=== PATIENT | male | born 1990 | race Hispanic/Latino ===

== ENCOUNTER 2016-05-16 11:21 | Inpatient (IN) | payer OTHER ==
[~2016-05-16] VITALS: Ht 160 cm; Wt 61.3 kg
[~2016-05-16 11:21] MED LIST: IBUPROFEN600 M1 PO; MOTRIN800 MG PO; PROAIR HFA0.09 MG/Ac INH; ZITHROMAX Z PA250 MG PO; ZOFRAN4 M1 PO
[2016-05-16 13:12] LABS: ABSOLUTE BASOPHIL COUNT 0 /CUMM (0.0-0.2); ABSOLUTE EOSINOPHIL COUNT 0 /CUMM (0.0-0.7); ABSOLUTE GRANULOCYTE CT 5.9 /CUMM (1.4-6.5); ABSOLUTE LYMPH COUNT 1.8 /CUMM (1.2-3.4); ABSOLUTE MONOCYTE COUNT 0.5 /CUMM (0.10-0.60); BASOPHIL % 0.4 % (0.0-2.0); EOSINOPHIL % 0.4 % (0-5); GRANULOCYTE % 71.7 % (42.2-75.2); HEMATOCRIT 40.8 % (42-52); MEAN CORPUSCULAR HGB CONC 34.7 G/DL (33.0-37.0); MEAN CORPUSCULAR VOLUME 89.3 FL (80.0-94.0); MEAN PLATELET VOLUME 7.1 FL (7.4-10.4); PLATELET COUNT 240 /CUMM (130-400); RBC DISTRIBUTION WIDTH 12.7 % (11.5-14.5); RED BLOOD CELL CT 4.57 /CUMM (4.70-6.10); WHITE BLOOD CELL COUNT 8.3 /CUMM (4.8-10.8)
--- NOTE | 2016-05-16 14:07 | RADIOLOGY REPORT ---
EXAMINATION: XR CHEST CLINICAL INFORMATION: Chest pain and shortness of breath. Crack cocaine inhalation. COMPARISON: 07/30/2014. TECHNIQUE: 2 views of the chest were obtained. FINDINGS: Cardiac and mediastinal silhouettes are normal in appearance. Mild right apical pleural scarring is stable. The lungs are slightly hyperinflated but clear. No evidence of consolidation or pneumothorax or pleural effusion. IMPRESSION: No acute cardiopulmonary process is demonstrated.
--- NOTE | 2016-05-16 14:17 | ED GENERAL ADULT ---
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 Vital Signs & Intake/Output Vital Signs & Intake/Output Vital Signs Date Time Temp Pulse Resp B/P Pulse O2 O2 Flow FiO2 Ox Delivery Rate 05/17 0645 96.7 63 18 115/60 99 Room Air 05/16 2321 72 18 122/69 97 Room Air 05/16 1802 98.0 75 16 116/59 98 Room Air 05/16 1203 Room Air 05/16 1136 99.4 109 20 152/87 97 Room Air ED Intake and Output 05/17 0000 05/16 1200 Intake Total 1000 Output Total Balance 1000 Intake, IV 1000 Patient 140 lb Weight Allergies Coded Allergies: Penicillins (Intermediate, HIVES 05/25/15) Reconcile Medications No Known Home Medications Triage Note: STATES EVERY TIME HE USES CRACK HE FEELS LIKE HE IS GOING CRAZY, PARANOIA, FEELS LIKE PEOPLE ARE FOLLOWING HIM ESPECIALLY AT NIGHT. STATES HE DOESN'T WANT TO LIVE BECAUSE OF HIS ADDICTION TO DRUGS. HAS PLAN TO JUMP OFF BRIDGE. COMMIT TO SAFETY WHILE IN ED Triage Nurses Notes Reviewed? yes HPI: 25 yo M PMH polysubstance abuse presenting with SI, for detox evaluation. Patient has been using crack cocaine for the past several months, drinking daily (10-18 beers), progressive dysthmia and discontent with "all my drug use." Worsening SI for the past 2-3 days with plan to jump off of building. In the past 24 rs has used 5-6 $20 bags of crack cocaine, smoked, drank 10+ beers, last drink this AM around 6:00. (+) Auditory Hallucinations, voices telling patient to kill himself and not to trust his friends. ROS (+) for intermittent chest pain, palpitations, and SOB with crack cocaine use. Denies toxic ingestions or self-injury. (ALLY EUGENE,KARI) Past History Travel History Traveled to [place] past 21 day No Medical History Any Pertinent Medical History? 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 Yes (ALLY EUGENE,KARI) Review of Systems Review of Systems Constitutional: Reports: diaphoresis. EENTM: Reports: no symptoms. Respiratory: Reports: short of breath. Cardiovascular: Reports: chest pain. GI: Reports: nausea. Denies: abdominal pain, diarrhea, vomiting. Genitourinary: Reports: no symptoms. Musculoskeletal: Reports: no symptoms. Skin: Reports: no symptoms. Neurological/Psychological: Reports: anxiety, depressed, other (SI). Hematologic/Endocrine: Reports: no symptoms. Immunologic/Allergic: Reports: no symptoms. All Other Systems: Reviewed and Negative (ALLY EUGENE,KARI) Physical Exam Physical Exam General Appearance: well developed/nourished, no apparent distress, alert, awake , anxious Head: atraumatic, normal appearance Eyes: Bilateral: normal appearance. Ears, Nose, Throat: normal ENT inspection, No Tongue fasciculations Neck: normal inspection, supple, full range of motion Respiratory: normal breath sounds, no respiratory distress, lungs clear Cardiovascular: normal peripheral pulses, tachycardia Gastrointestinal: normal bowel sounds, soft, non-tender Back: normal inspection Extremities: No tremors Neurologic/Psych: no motor/sensory deficits, awake, alert, No tremors or tongue fasiculations Skin: intact Core Measures ACS in differential dx? Yes CVA/TIA Diagnosis: No Severe Sepsis Present: No Septic Shock Present: No (KARI CANALES MD) Progress Differential Diagnoses I considered the following diagnoses in my evaluation of the patient: [EtOH abuse, Cocaine abuse, EtOH withdrawal, cocaine chest pain, Crack Cociane lung, PTX, PNA, SI] Initial ED EKG: normal sinus rhythm, JOSE CARLOS V2-V3 (KARI CANALES MD) Plan of Care: Orders Procedure Date/time Status Regular Diet 05/16 D Active Add-on Test (ER Only) 05/16 1357 Active URINE DRUG SCREEN FOR ER ONLY 05/16 1251 Complete URINALYSIS 05/16 1251 Complete ETHANOL 05/16 1251 Complete COMPREHENSIVE METABOLIC PANEL 05/16 1251 Complete CBC WITHOUT DIFFERENTIAL 05/16 1251 Complete Precautions 05/16 1250 Active CIWA 05/16 1250 Active ED CRISIS PSYCH CONSULT 05/16 1250 Active EKG 05/16 1215 Active Current Medications Sig/Gerry Start time Last Medication Dose Stop Time Status Admin Diazepam 5 MG ONCE ONE 05/16 1430 CAN (Valium) 05/16 1431 Laboratory Tests 05/16/16 1311: Serum Alcohol Cancelled 05/16/16 1258: Urine Opiates Screen < 100.00, Methadone Screen < 40, Barbiturate Screen < 60, Ur Phencyclidine Scrn < 6.00, Amphetamines Screen 154, U Benzodiazepines Scrn < 85, Urine Cocaine Screen > 1000 H, Urine Cannabis Screen < 5.00, Urine Color YEL, Urine Clarity CLEAR, Urine pH 6.0, Ur Specific [place] 1.010, Urine Protein NEG, Urine Ketones NEG, Urine Nitrite NEG, Urine Bilirubin NEG, Urine Urobilinogen 0.2, Ur Leukocyte Esterase NEG, Ur Microscopic EXAM NOT REQUIRED, Urine Hemoglobin NEG, Urine Glucose NEG 05/16/16 1251: Anion Gap 17 H, Estimated GFR > 60, BUN/Creatinine Ratio 10.0, Glucose 84, Calcium 9.4, Total Bilirubin 0.8, AST 44, ALT 43, Alkaline Phosphatase 98, Total Protein 7.9, Albumin 4.7, Globulin 3.2, Albumin/Globulin Ratio 1.5, CBC w Diff NO MAN DIFF REQ, RBC 4.57 L, MCV 89.3, MCH 31.0, RDW 12.7, MPV 7.1 L, Gran % 71.7, Lymphocytes % 21.4, Monocytes % 6.1, Eosinophils % 0.4, Basophils % 0.4, Absolute Granulocytes 5.9, Absolute Lymphocytes 1.8, Absolute Monocytes 0.5, Absolute Eosinophils 0, Absolute Basophils 0, PUBS MCHC 34.7, Serum Alcohol 44.0 Physician MDM: 25 yo M PMH polysubstance abuse presenting with EtOH abuse, cocaine abuse, SI. Tachycardic in 100s, remainder of exam as above. DDx: EtOH abuse, Cocaine abuse, EtOH withdrawal, cocaine chest pain, Crack Cociane lung, PTX, PNA, SI. 1L NS for tachycardia, will hold BZD for now given lack of tremors and significant anxiety. ECG sinus rhythm, JOSE CARLOS in V2-V3, non-ischemic. CXR without focal consolidation or airspace disease. BMP with mild AG, IVF infusing. Medically cleared for ED crisis evaluation. Evaluated by crisis, plan to hold for sobriety overnight, re-evaluate tomorrow morning. D/W Dr. Foote. (KARI CANALES MD) 05/16/2016 7:50:43 PM Patient signed out to me by Dr. Lema, pending crisis evaluation tomorrow morning. (CHEYANNE GOSS MD) Differential Diagnoses I considered the following diagnoses in my evaluation of the patient: Hand-Off Endorsed To: ZIA CLINTON DO Endorsed Time: 0700 Pending: consult (CRISIS) (CHEYANNE GOSS MD) Departure Departure Disposition: STILL A PATIENT Condition: Stable Clinical Impression Primary Impression: Suicidal ideation Secondary Impressions: Alcohol abuse, Cocaine abuse Referrals: PATIENT HAS NO PRIMARY CARE DR (PCP/Family) Departure Forms: Customer Survey General Discharge Information (KARI CANALES MD) Departure Prescriptions: Current Visit Scripts No Known Home Medications Resident Co-Sign Statement Statement: ED Attending supervision documentation- [x] I saw and evaluated the patient. I have also reviewed all the pertinent lab results and diagnostic results. I agree with the findings and the plan of care as documented in the Resident's documentation. [] I have reviewed the ED Record and agree with the Resident's documentation. [] Additions or exceptions (if any) to the Resident's note and plan are summarized below: [] (ADONAY EUGENE,ZIA Hansen) Departure Comments 05/17/16 7:24 AM Was signed out to me by Dr. Goss. He is pending disposition by crisis. (ZIA CLINTON DO) Critical Care Note Critical Care Note Critical Care Time: non-applicable (KARI CANALES MD)
--- NOTE | 2016-05-16 15:17 | ED PSY CRISIS COLLATERAL NOTE ---
Collateral Note Collateral Note Family/Inform/Mita Contacts: Crisis spoke to pt's friend Corrine Cedeno ([phone]). Ms. Cedeno reports she has not spoken (via text) to pt in over a week. She reports everything was okay a week ago when they were texting.
--- NOTE | 2016-05-16 16:51 | ED PSYCH CRISIS CONSULTATION ---
See Addendum Crisis Consult Basic Assessment Date of Consult: 05/16/16 Responsible Person/Accompanied By: self Insurance Authorization: Insurance #1: Insurance name: SELF-PAY Phone number: Policy number: Group number: Authorization number: ED Provider: Patient's ED Provider: KARI CANALES MD Primary Care Physician: Patient's PCP: PATIENT HAS NO PRIMARY CARE DR PCP's Phone Number: Current Psychiatrist: None Chief Complaint: Psychiatric Related Complaint Patient's Quote: "I went into the street today and people wear following me" Present Illness: Pt is a 25 year old Burkinan male who moved to the [facility] 3 years ago. Pt's primary langauge is Belgian. 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 Pt self presents in the ED today high on crack cocaine, paranoid that people are following him and suicidal ideation ( thinking of jumping off a bridge). Pt has a long history of drug use. Pt started using cocaine at the age of 21 and switched to crack-cocaine several months ago when he reports cocaine was unavailable. Pt also reports he drinks 10 -18 beers daily. Pt reports he used 5-6 $20 bags of crack cocaine within the last 24 hours. Pt reports he also smokes cigarettes and denies other drug use. Pt reports auditory and tactile hallucinations. Pt reports he heard a voice telling him to not trust his friends. Pt reports while in the ED he felt something crawling on his face. Pt denies past mental health/ substance abuse treatment. 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 Pt reports he only thinks about suicide when hes using substances. Pt wants help with substance use. Crisis consulted with Dr. Gutierrez. Pt will be held over and re-evaluated in the morning. Pt is in agreement with the re-evaluation in the morning. Patient's Address: [address] [place] [address] Other Phone Number: Who Do You Live With? Brother Family/Informants Interviewed: Friend contacted- but hasn't spoken to pt Another friend contacted, no call back Allergies - Coded Allergies: Penicillins (Intermediate, HIVES 05/25/15) Current Medications - No Known Home Medications Laboratory Results: Laboratory Tests 05/16/16 1311: Serum Alcohol Cancelled 05/16/16 1258: Urine Opiates Screen < 100.00, Methadone Screen < 40, Barbiturate Screen < 60, Ur Phencyclidine Scrn < 6.00, Amphetamines Screen 154, U Benzodiazepines Scrn < 85, Urine Cocaine Screen > 1000 H, Urine Cannabis Screen < 5.00, Urine Color YEL, Urine Clarity CLEAR, Urine pH 6.0, Ur Specific [place] 1.010, Urine Protein NEG, Urine Ketones NEG, Urine Nitrite NEG, Urine Bilirubin NEG, Urine Urobilinogen 0.2, Ur Leukocyte Esterase NEG, Ur Microscopic EXAM NOT REQUIRED, Urine Hemoglobin NEG, Urine Glucose NEG 05/16/16 1251: Anion Gap 17 H, Estimated GFR > 60, BUN/Creatinine Ratio 10.0, Glucose 84, Calcium 9.4, Total Bilirubin 0.8, AST 44, ALT 43, Alkaline Phosphatase 98, Total Protein 7.9, Albumin 4.7, Globulin 3.2, Albumin/Globulin Ratio 1.5, CBC w Diff NO MAN DIFF REQ, RBC 4.57 L, MCV 89.3, MCH 31.0, RDW 12.7, MPV 7.1 L, Gran % 71.7, Lymphocytes % 21.4, Monocytes % 6.1, Eosinophils % 0.4, Basophils % 0.4, Absolute Granulocytes 5.9, Absolute Lymphocytes 1.8, Absolute Monocytes 0.5, Absolute Eosinophils 0, Absolute Basophils 0, PUBS MCHC 34.7, Serum Alcohol 44.0 Past History Past Medical History Neurological: NONE EENT: NONE Cardiovascular: NONE Respiratory: NONE Gastrointestinal: NONE Hepatic: NONE Renal: NONE Musculoskeletal: NONE Psychiatric: substance abuse Endocrine: NONE Blood Disorders: NONE Cancer(s): NONE 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 Past Surgical History Surgical History: non-contributory Psychosocial History Strengths/Capabilities: patient is seeking help to stop using drugs Physical Limitations (Interventions): none Psychiatric Treatment History Psych Treatment Psychiatric Treatment No Inpatient Treatment No Outpatient Treatment No Diagnosis by History: none Substance Use/Abuse History Drug Use/Abuse 1 Substances Used/Abused Yes Substance Used/Abused Alcohol First Use 21 Last Used yesterday 2/18/17 How much used/taken 10-18 beers How often 10-18 beers daily For how long since 21 Route of use oral Drug Use/Abuse 2 Substances Used/Abused Yes Substance Used/Abused Cocaine First Use 21 Last Used 3 months ago How much used/taken varied How often daily For how long several years Route of use inhaled Drug Use/Abuse 3 Substances Used/Abused Yes Substance Used/Abused Crack Cocaine First Use 3 months ago Last Used today How much used/taken 5-6 $20 bags within last 24 hours How often varies For how long for the last 3 months Route of use inhale Drug Use/Abuse 4 Substances Used/Abused Yes Substance Used/Abused Nicotine First Use unknown Last Used today How much used/taken several cigarrettes How often varies For how long years Route of use inhaled Substance Abuse Treatment Substance Abuse Treatment Past Substance Abuse [place] No Inpatient Treatment No Outpatient Treatment No Current Mental Status Mental Status Orientation: Person, Place, Situation Affect: Depressed, Flat, Hopeless, Sad Speech: Normal Neuro-vegetative: Anhedonia, Energy Decreased, Helpless Appearance Appearance- Dress/Hygiene: pt presents in [facility] issued paper scrubs. Pt appears well groomed. Pt has saline IV in hand as nursing reports he is mildly dyhdrated. Behaviors Thought Process: WNL Thought Content: Auditory Hallucinations, Paranoid, Tactile Hallucinations Memory: WNL Insight: Fair SI/HI Risk Assessment Past Suicidal Ideation/Attempts Yes Current Suicidal Ideation/Att Yes Past Homicidal Ideation/Att: No Current Homicidal Ideation/Attempts No Degree of Intent: Plan (jump off bridge) Danger To: Self Gravely Disabled: Poor Impulse Control Risk Factors: high anxiety/distress, substance abuse, poor impulse control, male , limited support Lethality Ratin PTSD Checklist PTSD Done? patient declined ED Management Sitter: Yes Restraints: No DSM5/PS Stressors/Medical Prob Diagnosis' (DSM 5, Stressors, Medical): F14.20 Cocaine Use Disorder, Severe (crack-cocaine) F10.20 Alcohol Use Disorder, Severe F17.2 Tobacco Use Disorder, Moderate Z59.7 Insufficient Social Insurance or Welfare Support Current GAF: 30 Departure Disposition Psych Medical Clearance Date: 05/16/16 Medically Cleared at: 1500 Time Started: 1545 Time Ended: 1605 Psychiatrist Consulted: Dr. Gutierrez Date Disposition Established: 05/16/16 Time Disposition Established: 162 Plan for Disposition - Modality: hold over and re-eval Rationale for Disposition: Pt presents with SI, AH and TH (tactile). Pt is positive for cocaine. pt used 5- 6 $20 bags of crack cocaine today. Pt reports psychosis and SI when he is high and denies feelings suicidal or depressed when sober. pt should be held over and re-evaluated when he is substance free. Referrals PATIENT HAS NO PRIMARY CARE DR (PCP/Family)
[2016-05-17] VITALS (9 sets, daily range): BP systolic 113–132; BP diastolic 60–88
--- NOTE | 2016-05-17 10:50 | IP CRISIS DIAG ASSESS PSYCH ---
See Addendum Diagnostic Assessment Basic Assessment Insurance Authorization: Insurance #1: Insurance name: SELF-PAY Phone number: Policy number: Group number: Authorization number: Primary Care Physician: Patient's PCP: PATIENT HAS NO PRIMARY CARE DR PCP's Phone Number: Patient's Quote: "I went into the street today and people wear following me" Present Illness: Pt is a 25 year old [place] male who moved to the [facility] 3 years ago. Pt's primary langauge is Egyptian. 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 Pt self presents in the ED today high on crack cocaine, paranoid that people are following him and suicidal ideation ( thinking of jumping off a bridge). Pt has a long history of drug use. Pt started using cocaine at the age of 21 and switched to crack-cocaine several months ago when he reports cocaine was unavailable. Pt also reports he drinks 10 -18 beers daily. Pt reports he used 5-6 $20 bags of crack cocaine within the last 24 hours. Pt reports he also smokes cigarettes and denies other drug use. Pt reports auditory and tactile hallucinations. Pt reports he heard a voice telling him to not trust his friends. Pt reports while in the ED he felt something crawling on his face. Pt denies past mental health/ substance abuse treatment. 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 Pt reports he only thinks about suicide when hes using substances. Pt wants help with substance use. Crisis consulted with Dr. Gutierrez. Pt will be held over and re-evaluated in the morning. Pt is in agreement with the re-evaluation in the morning. 05/17/16: Pt was re-evaluted this morning by crisis. Pt endorses suicidal ideation with a plan to jump off a bridge. Pt reports he does not feel safe going home as he will just use which will increase his suicidal ideation. Pt reports he is not working and has limited supports. Crisis reviewed with Dr. Loyola, pt should be admitted to [facility]. Patient's Address: [address] [place] [address] Other Phone Number: Who Do You Live With? Brother Feel Safe Where You Live? Yes Feel Safe in Your Relationship No (n/a not in a relationship) Marital Status: single Do You Have Children? No Primary Language? Egyptian Language(s) Spoken At Home: Egyptian Family/Informants Interviewed: Friend contacted- but hasn't spoken to pt Another friend contacted, no call back Allergies - Coded Allergies: Penicillins (Intermediate, HIVES 05/25/15) Current Medications - No Known Home Medications Consequences of Psych Med Use: n/a Lab Results: Laboratory Tests 05/16/16 1311: Serum Alcohol Cancelled 05/16/16 1258: Urine Opiates Screen < 100.00, Methadone Screen < 40, Barbiturate Screen < 60, Ur Phencyclidine Scrn < 6.00, Amphetamines Screen 154, U Benzodiazepines Scrn < 85, Urine Cocaine Screen > 1000 H, Urine Cannabis Screen < 5.00, Urine Color YEL, Urine Clarity CLEAR, Urine pH 6.0, Ur Specific [place] 1.010, Urine Protein NEG, Urine Ketones NEG, Urine Nitrite NEG, Urine Bilirubin NEG, Urine Urobilinogen 0.2, Ur Leukocyte Esterase NEG, Ur Microscopic EXAM NOT REQUIRED, Urine Hemoglobin NEG, Urine Glucose NEG 05/16/16 1251: Anion Gap 17 H, Estimated GFR > 60, BUN/Creatinine Ratio 10.0, Glucose 84, Calcium 9.4, Total Bilirubin 0.8, AST 44, ALT 43, Alkaline Phosphatase 98, Total Protein 7.9, Albumin 4.7, Globulin 3.2, Albumin/Globulin Ratio 1.5, CBC w Diff NO MAN DIFF REQ, RBC 4.57 L, MCV 89.3, MCH 31.0, RDW 12.7, MPV 7.1 L, Gran % 71.7, Lymphocytes % 21.4, Monocytes % 6.1, Eosinophils % 0.4, Basophils % 0.4, Absolute Granulocytes 5.9, Absolute Lymphocytes 1.8, Absolute Monocytes 0.5, Absolute Eosinophils 0, Absolute Basophils 0, PUBS MCHC 34.7, Serum Alcohol 44.0 Toxicology Screen Completed? Yes Results: positive (cocaine) Symptoms of Use: For the last 3 weeks, pt reports he has been drinking 10-18 beers daily as well as smoking crack-cocaine "until he runs out of money". Past History Past Medical History Medical History: None/Denies Past Surgical History Surgical History none Abuse/Trauma History Trauma History/Current Trauma: Denies Legal History Current Legal Status: none Have you ever been arrested? 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 Psychosocial History Strengths/Capabilities: patient is seeking help to stop using drugs Physical Limitations (Interventions): none Psychiatric Treatment History Psych Treatment Psychiatric Treatment No Inpatient Treatment No Outpatient Treatment No Diagnosis by History: none Risk Factors: high anxiety/distress, substance abuse, poor impulse control, male , limited support Substance Use/Abuse History Drug Use/Abuse minimum 12mo Hx Substances Used/Abused Yes Substance Used/Abused Nicotine First Use unknown Last Used today How much used/taken several cigarrettes How often varies For how long years Route of use inhaled Substance Abuse Treatment Substance Abuse Treatment Past Substance Abuse [place] No Inpatient Treatment No Outpatient Treatment No Sexual History Sexually Active No # of partners 0 Sexual Orientation Heterosexual Sexual Concerns: n/a Education History Highest Level of Education: high school/GED Preferred Learning Style: visual, experiential Current Mental Status Mental Status Orientation: Person, Place, Situation Affect: Depressed, Flat, Hopeless, Sad Speech: Normal Neuro-vegetative: Anhedonia, Energy Decreased, Helpless Appearance Appearance- Dress/Hygiene: pt presents in [facility] issued paper scrubs. Pt appears well groomed. Behaviors Thought Process: WNL Thought Content: Auditory Hallucinations, Paranoid, Tactile Hallucinations Memory: WNL Insight: Fair SI/HI Risk Assessment - Minimum 6mo History- Past Suicidal Ideation/Attempts Yes Current Suicidal Ideation/Att Yes Past Homicidal Ideation/Att: No Current Homicidal Ideation/Attempts No Degree of Intent: Plan (jump off bridge) Danger To: Self Gravely Disabled: Poor Impulse Control Risk Factors: high anxiety/distress, substance abuse, poor impulse control, male , limited support Lethality Ratin Needs/Init TX Plan/Goals: 1. Improve mood, eliminate suicidal thinking 2. Increase identification and use of positive coping skills 3. Increase community support system 4. Decrease substance use AUDIT-C Questionnaire: AUDIT-C Questionnaire: Response Value ETOH use in the past year 4 or more per week 4 # drinks typical/day 10 or more 4 6 or > drinks per occasion Daily/Almost Daily 4 Total 12 DSM5/PS Stressors/Medical Prob Diagnosis' (DSM 5, Stressors, Medical): F14.20 Cocaine Use Disorder, Severe (crack-cocaine) F10.20 Alcohol Use Disorder, Severe F17.2 Tobacco Use Disorder, Moderate Z59.7 Insufficient Social Insurance or Welfare Support Current GAF: 30
--- NOTE | 2016-05-17 11:24 | SOCIAL WORKER SOCIAL HX PSYCH ---
Social History Basic Assessment Insurance Authorization: Insurance #1: Insurance name: SELF-PAY Phone number: Policy number: Group number: Authorization number: Curr Source of Income/Entitlements: no current source of income. 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 Pt's primary language is Mongolian. [facility], cert pharmacy tech Sandy, translated as the [employer] system was unavailable. Pt self presents in the ED yesterday (05/16/16 ) high on crack cocaine, paranoid that people are following him and suicidal ideation (thinking of jumping off a bridge). Pt has a long history of drug use. Pt started using cocaine at the age of 21 and switched to crack-cocaine several months ago when he reports cocaine was unavailable. Pt also reports he drinks 10 -18 beers daily. Pt reports he used 5-6 $20 bags of crack cocaine within the last 24 hours. Pt reports he also smokes cigarettes and denies other drug use. Pt reports auditory and tactile hallucinations. Pt reports he heard a voice telling him to not trust his friends. Pt reports while in the ED he felt something crawling on his face. Pt denies past mental health/ substance abuse treatment. 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 Pt reports he only thinks about suicide when hes using substances. Pt wants help with substance use. Crisis re-evaluated pt this morning using [employer] system. Pt reports he still feels like taking his life but not as intensely as he did yesterday. Pt clarified that he does feel suicidal when he's sober as well as when he's high. Pt confirmed he drinks 10-18 beers daily (for the last 3 weeks) and uses crack until he doesn't have any more money. Pt confirmed he is not involved in the legal system and that he came to this country 3 years ago seeking asylum. Pt reports he does not feel safe going home. Pt is worried he will continue to use drugs and he will feel worse and eventually kill himself. Crisis consulted with Dr. Loyola who agrees pt meets criteria for inpatient hospitalization. Primary Language? Mongolian Language(s) Spoken At Home: Mongolian Living Situation Rents or Owns Home? rents Feel Safe Where You Are Living Yes Allergies - Coded Allergies: Penicillins (Intermediate, HIVES 05/25/15) Current Medications - No Known Home Medications Consequences of Psych Med Use: no history of psych meds Past History Past Medical History Neurological: NONE EENT: NONE Cardiovascular: NONE Respiratory: NONE Gastrointestinal: NONE Hepatic: NONE Renal: NONE Musculoskeletal: NONE Psychiatric: depression, substance abuse Endocrine: NONE Blood Disorders: NONE Cancer(s): NONE DIRECTOR OF PROVIDER RELATIONS/Reproductive: NONE Past Surgical History Surgical History: non-contributory /Family History Place/Country of Origin: [facility] Childhood Family Constellation: pt sought [place]ly[place] from his country on his own. [place] came to the [place] alone. Pt has a brother. Parents are still in [facility]. Primary Childhood Caretakers: mother, grandparent(s) Family Life During Childhood: Pt reports he was mostly raised by his grandparentse so his mother could work. He did not meet his father until he was 18. Pt reports he had a difficult childhood where he had to fight in the street for everything DCF Involvement? No Relationship w/Mother: ok, don't speak often as mother is still in [facility] Relationship w/Father: pt did not meet his father until he was 18. He doesn't speak to him Any Sibling(s)? Yes Sibling's Gender(s)/Age(s): male Sibling 1:, male Sibling 2:, male Sibling 3:, female Sibling 4: (pt is the oldest sibling) Relationship w/Sibling(s): pt hardly speaks to them Relationship w/Friends: has 1 good friend that he calls his brother Family Psych/Sub Abuse/Add Hx: unknown Abuse/Trauma History Trauma History/Current Trauma: Denies History of Trauma/Abuse Treatment? No Legal History Legal Guardian/Address/Phone: n/a pt is his own legal guardian Current Legal Status: none Have you ever been arrested No Number of Arrests: 0 Hx of Juvenile Legal Charges? No Hx of Adult Legal Charges? 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 No History of Blackouts? Yes (prior 1st use of drugs/etoh) Last Blackout: several years ago ADL Limitations: none [place]/Social/Peer Relations Pt reports he has 1 Austrian friend that he sometimes uses drugs and etoh with. Pt has limited social interactions. Pt often uses alone. Pt lives with close friend. Meaningful Activities: none Childhood Catholic: Jain Current Mu-Ism Affiliation: Jain Is Spirituality Important to You? yes- is friendly with collateral analyst Patient's Ethnicity: [facility] Cultural/Ethnic Issues: pt left [facility] a little over 3 years ago. He came into the country illegally but was released being held at immigration when he reported he was seeing political asylum Are There Developmental Issues? 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 he has limited contact with them at this time. Risk Factors: high anxiety/distress, substance abuse, poor impulse control, male , limited support Substance Use/Abuse History Drug Use/Abuse 1 Substance Used/Abused Nicotine First Use unknown Last Used 05/16/16 How much used/taken several cigarrettes How often varies For how long years Route of use inhaled Drug Use/Abuse 2 Substance Used/Abused Alcohol First Use not reported Last Used 05/16/16 @ 6:00 am How much used/taken 10+ beers How often daily For how long years Route of use oral Drug Use/Abuse 3 Substance Used/Abused Crack Cocaine First Use 3 months ago Last Used 05/16/16 How much used/taken 5-6 $20 bags on 05/16/16; pt reports he uses until he runs out of money How often daily For how long 3 months Route of use inhaled Drug Use/Abuse 4 Substance Used/Abused Cocaine First Use at age 21 Last Used 3 months ago How much used/taken varied How often daily, when he had the money For how long several years Route of use inhaled Have Had Periods of Sobriety? No Have You Ever Attended AA? No Do You Attend AA Currently? No Do You Have a Sponsor? No Other Community Resources Used: none Symptoms of Use: For the last 3 weeks, pt reports he has been drinking 10-18 beers daily as well as smoking crack-cocaine "until he runs out of money". Substance Abuse Treatment Substance Abuse Treatment Inpatient Treatment No Outpatient Treatment No Sexual History Sexually Active No # of partners 0 Sexual Orientation Heterosexual Sexual Concerns: n/a Education History Highest Level of Education: high school/GED Preferred Learning Style: visual, experiential Current Mental Status Mental Status Orientation: Person, Place, Situation Affect: Depressed, Flat, Hopeless, Sad Speech: Normal Neuro-vegetative: Anhedonia, Energy Decreased, Helpless Appearance Appearance- Dress/Hygiene: pt presents in [facility] issued paper scrubs. Pt appears well groomed. Behaviors Thought Process: WNL Thought Content: Auditory Hallucinations, Paranoid, Tactile Hallucinations Memory: WNL Insight: Fair SI/HI Risk Assessment Past Suicidal Ideation/Attempts Yes Current Suicidal Ideation/Att Yes Past Homicidal Ideation/Att: No Current Homicidal Ideation/Attempts No Degree of Intent: Plan (jump off bridge) Danger To: Self Gravely Disabled: Poor Impulse Control Lethality Ratin - Conclusion and Recommendations for treatment - and discharge planning
[2016-05-18] VITALS (10 sets, daily range): BP systolic 117–135; BP diastolic 61–79
--- NOTE | 2016-05-18 14:38 | CPS MD/APRN INITIAL ASSE PSYCH ---
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 Chief Complaint: "I was scared someone was following me." Reaction to Hospitalization: "I would like to leave." History of Present Illness Onset of Illness: Patient is a 25 y/o single, omani, male who presented to ED on 05/16/16 in the context of crack/cocaine and alcohol intoxication, paranoid that people were following him, endorsing suicidal ideation with plan to jump off a bridge. Patient reported drinking 10-18 beers daily and using crack/cocaine as frequently as he can during crisis eval. On encounter, [employer] translation service was use ([employer] Monik, ID#[id number]) . Patient denied a history of prior mental health treatment, inpatient psychiatric hospitalizations, and substance abuse treatment. He reported paranoia and AH/TH occurs primarily when he is intoxicated on crack/cocaine. He could not identify any times experiencing these symptoms while sober. He reported having great difficulty adjusting to the [place] culture and feels unsupported by his family who is in the [place], primarily due to his substance abuse. He described feeling overwhelmed by living in the [place], is currently unemployed related to substance abuse. He reported insomnia, denied overt symptoms of depression and anxiety, SI, HI, AVH. when asked if he would like assistance with substance abuse, patient reported "I just want to go home to my country." Patient appears ambivalent about seeking outpatient substance abuse treatment, and appears to manage distress by self- medicating and stuffing feelings. Circumstances Leading to Admission: Crack/cocaine intoxication Crack/cocaine and alcohol dependence Difficulty adjusting to [place] culture and [place] Limited supports in the [place] Unemployment Problem(s) Justifying Need for Admission: +SI and plan to jump off of bridge s/p crack/cocaine intoxication Past Psychiatric History Past Diagnosis(es)- if any: Cocaine use disorder, severe Alcohol use disorder, severe Nicotine use disorder, severe Past Precipitating Factors- if any: Moved to [facility] from [facility] 3 years ago with difficulty adjusting into [place] culture. Polysubstance use - Include inpatient and outpatient treatment Treatment History: None History of Suicide Attempts or Gestures Pt denied Substance Abuse History: Crack/cocaine: x past 4 years. Reports using as much as he can when he has the money to. 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 Alcohol: 6-8 beers daily during weekdays; up to 18 beers daily on weekends. LUDY: 05/16/16. * patient denied a history of complicated alcohol withdrawal. Denied prior medical hospitalizations r/t alcohol withdrawal, denied withdrawal Szs and DTs. Tobacco: reports daily cigarettes use, > 5 cigarettes daily. Allergies: Coded Allergies: Penicillins (Intermediate, HIVES 05/25/15) Home Med List: None - Include any medical condition(s) that may - impact the patient's recovery/remission Past Medical History: Pt denied. 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 Substance Use: Patient denied known family history of substance abuse. Suicides: Patient denied known family history of suicide attempts. Social History Living Situation: Presently lives with his uncle who he refers to as his "brother." Significant Relationships (family/friends): Patient with limited supports. Identified wanting to have nothing to do with his family, or his uncle who he lives d/t uncle and family being unsupportive. Education: Equivalent to freshman year of H.S. Vocation/Occupation: Unemployed. 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 Legal: Patient denied. Currently in political asylum by immigration. Other Social History: Patient reported having a very difficult time adjusting to the [place] and family expectations. Reports wanting to return to [facility]. Healthly Behaviors Screening Tobacco Screening Tobacco Use from ED Docu: Current Daily Use Daily Tobacco Use Amount/Type: => 5 Cigarettes daily - If tobacco counseling indicated - the following topics are required. - #1 Recognizing dangerous situations. - #2 Coping Skills. - #3 Basic information about quitting. Status of Tobacco Cessation Counseling: #1, #2 AND #3 Completed Cessation Med Status: Nicotine Patch Ordered Alcohol Screening - ETOH screen POS if BAL >=80 or Audit-C>= M4/F3 Audit-C Score from Diag Assess: 12 Blood Alcohol Level: Laboratory Tests 05/16 05/16 1251 1311 Toxicology Serum Alcohol (<10 MG/DL) 44.0 Cancelled Alcohol Use Screening Results: Pos per Audit C &/or BAL - If ETOH counseling indicated - the following topics are required. - #1 Express concern about the patient's - drinking at unhealthy levels, include informing - of national norms for moderate drinking: - men <= 14 drinks/week, max 4 drinks/occasion - women <= 7 drinks/week, max 3 drinks/occasion - #2 Providing feedback, including linking alcohol to - negative physical effects (liver injury, hypertension) - negative emotional effects (relationship problems and - depression) - negative occupational consequences (reduced work - performance) - #3 Advising the patient to abstain from alcohol or - to drink below national norms for moderate drinking - (as listed above). Status of ETOH Use Counseling: #1, #2 AND #3 Completed. Metabolic Screening - Screen if on a Neuroleptic Medication - Metabolic screening should include: - Blood Pressure, BMI, Glucose or Hgb A1c, & a - Lipid profile from within the past 365 days. Metabolic Screening ([X]) Not Applicable, patient not on a neuroleptic. OR () Patient on a neuroleptic(s) . Enter below results for Glucose or Hemoglobin A1C, and lipid panel if obtained during the last 365 days. BMI: 23.900 Blood Pressure: 135/73 Laboratory Results (If applicable): Exam and Plan Mental Status Examination Ambulation Status: Steady and independent Appearance: 25 y/o Palestinian male who appears stated age. Appears well nourished. Neat and clean. Dressed casually and comfortably. Attitude towards examiner: Cooperative, polite Psychomotor activity: No psychomotor retardation or agitation noted. Behavior: WNL Quality of speech: Bahamian-speaking. Normal in rate, tone and volume. Affect: Constricted. Mood: "Ok." Patient denied symptoms of depression and anxiety. Reported feeling overwhelmed by being in the [place]. Suicidal Ideation: Pt denied Homicidal Ideation: Pt denied Hallucinations: Pt denied AVH and TH. Paranoid/Delusional Material: None evident. Patient no longer feels that people are following him. Was likely related to crack/cocaine intoxication. Difficulties with thought organization: None evident Insight: Fair Judgment: Limited Orientation: A&Ox3 Cognition: Grossly intact Memory Function: Grossly intact Estimate of intellectual functioning: Average Assets/Strengths Patient Identified Assets/Strengths: Future oriented to return to [facility]. Impression/Plan Impression and Plan: Patient is a 25-year old, single, Palestinian male, who arrived to the [facility] approximately 3 years ago. No prior history of inpatient or outpatient psychiatric treatment, substance abuse treatment, or suicide attempts. Has been abusing crack/cocaine and alcohol over the last 4 years in the context of poorly adjusting to the culture of the [facility]. Patient with limited family supports in the [facility], is unemployed, and does not feel welcomed into this country. He denied overt symptoms of depression and anxiety. Denied paranoia, AVH, since sobering up from crack/cocaine intoxication. Reported paranoia only occurs after intoxication on crack/cocaine. Admitted to difficulty sleeping. No changes in appetite reported. Patient unmotivated for substance abuse treatment and focused on returning to [facility], as he feels he does not fit in in the [facility]. Patient will be monitored on the unit for safety, mood and suicidal ideation. Will continue to educate the patient on the effects of substance abuse, and will explore appropriate outpatient substance treatment services for him to obtain help with sobriety. Patient was not open to trialing further psychotropic medications at this time. Reported Remeron 7.5mg QHS was helful with insomnia. Will continue Remeron QHS. Patient would mostly likely benefit from outpatient Bahamian-speaking substance abuse services for maintenance in sobriety. - Include all active medical diagnosis that require tx DSM 5 Diagnosis(es): Unspecified Depressive Disorder Substance-induced psychosis Adjustment disorder Cocaine use disorder, severe Alcohol use disorder, severe Nicotine use disorder, severe - Initial Tx Plan for Active Psych & Medical Conditions Treatment Plan: 1. Monitor the patient on unit for safety, mood, suicidal ideation, cocaine and alcohol withdrawal. 2. Continue Remeron 7.5mg QHS for depression/insomnia. 3. Monitor on CIWA protocol Q4H w/ awake for alcohol withdrawal. Utilize prn Ativan per CIWA protocol. 4. Obtain collateral from patient's uncle with permission from patient. 5. Once symptoms are clinically stable, refer patient to appropriate outpatient dual services. 6. H&P per power plant inspector team. 7. Offer termination of voluntary form. 8. Rpt serum sodium d/t abnormal level on admission. Will also discontinue Tegretol. - Factors that would help patient function - in a less restrictive setting. Factors: Detox from cocaine and alcohol Sobriety Bahamian-speaking community supports Outpatient substance abuse services
--- NOTE | 2016-05-18 15:49 | SOCIAL WORKER PROG NOTE PSYCH ---
Social Work Progress Note Progress Note Jana Paris APRN and I met with Tyler together using the [employer] system. Tyler reported that prior to admission he was feeling as if someone was following him. As he elaborated more on this, it was apparent that these feelings are directly correlated to his substance use. He says it is happening when he's using and when he is just coming off of the high. His substances of choice are crack cocaine and alcohol. He reports drinking about 6-8 beers a day. I am not clear about how much crack he was using at the time. He has been using substance since age 21. Reports some short periods of sobriety. Stating worship helps. He denies any significant withdrawal symptoms. Denies any auditory or visual hallucinations. [place] to the [place] few [place] ago and reports that immigration gave him political assylum. He has lots of family in [facility] and some family in the [place]. He currently resides with an Uncle Chele , who he also reports is more like a Brother. He says that his Mother brought him here. He reports feeling alot of pressure being here in the [place] and that he feels that the people who wanted him here want to see him suffer. He reports not getting help from family and that they refuse to help him because of his drug use. He is considering returning to [facility], he doesn't feel that the [place] is for [place]. He is resistant to the idea of getting help for his substance use here, because he is thinking of turning himself in to immigration. I offered to help him connect to an outpatient provider, but he refused. He denies any current SI, depression or anxiety. Some trouble with sleep. He is thinking of returning to [facility] and starting a new life without family or near people that he knows. He was asked if we could have his Brother in for a meeting or if we could speak with him, but he did not want to do that, stating that he doesn't need to be involved. He said that he wanted to leave the hospital soon, as he doesn't feel that he needs to be here. I did offer him a 3 day paper to terminate his voluntary status. He seemed interested in signing it and followed me to the nursing station following the meeting to do this.
[2016-05-19 08:00] VITALS: BP 124/70
[2016-05-19 08:02] VITALS: BP 124/70
--- NOTE | 2016-05-19 08:19 | CP SOUTH PROGRESS NOTE PSYCH ---
Psych (Inpt) Progress Note Progress Note Include the following elements, when applicable: Involvement in the active treatment of the patient with behavioral observations of the patient and the patient's response to the treatment. Review of the ongoing treatment process in the context of the treatment plan. Indication of how multi-disciplinary staff members are carrying out the treatment plan. Plans for future interventions and recommendations for revision of the treatment plan. Liaison with other physicians/providers. Progress Note: [I discussed this patient's progress to date, current mental status, treatment process in the context of the treatment plan, and discharge planning with staff/ team in the daily morning inpatient team meeting. I also met with the patient myself in individual session.] SUBJECTIVE: "I feel good." OBJECTIVE: Current Medications Sig/Gerry Start time Last Medication Dose Route Stop Time Status Admin Carbamazepine 100 MG TID 05/17 2300 DC 05/17 PO 2327 Lorazepam 1 MG Q1 NEEDED PRN 05/17 2245 AC PO Lorazepam 2 MG Q1 NEEDED PRN 05/17 2245 AC PO Mirtazapine 7.5 MG AT BEDTIME 05/17 2300 AC 05/18 PO 2137 Nicotine 7 MG 0800 05/19 0800 AC TOP Nicotine 2 MG Q2 HRS NEEDED PRN 05/18 1700 AC PO Vital Signs Date Time Temp Pulse Resp B/P Pulse O2 O2 Flow FiO2 Ox Delivery Rate 05/19 0802 78 124/70 05/19 0800 96.0 78 124/70 05/18 2000 97.4 94 127/79 05/18 1955 97.4 94 127/79 05/18 1556 68 134/76 05/18 1549 68 134/76 05/18 1358 70 135/73 05/18 1236 71 121/67 05/18 1210 71 121/67 05/18 1025 87 123/61 Laboratory Tests 05/19/16 0554: ASSESSMENT: Chart, progress notes, labs, VS, CIWA (not scoring), and medication list were reviewed. Rpt serum sodium resulted wnl. Met with the patient today, on the date of discharge. Nikita tank house operator helper service was greg (jaleesa Boles, ID#[id number]). He presented A&O x3. Speech was normal in rate, tone and volume. Eye contact was appropriate. He had no complaints. He reported his mood as "good." Affect was full-range. He reported depression of 0/10 (10 being the worst) and anxiety of 0/10 (10 being the worst) . He denied feeling hopeless, helpless, worthless and guilty. He denied active and passive suicidal ideation, plans and intent. He denied homicidal ideation. He stated and also believed he will not harm himself or others. He showed improved judgement and insight, and was agreeable to referral to [facility] in [place], [place] for outpatient Yi-speaking dual diagnosis treatment. He appeared future-oriented to abstain from all substances. He denied paranoid ideation, auditory and visual hallucinations. There was no evidence of delusional thoughts or internal stimulation. Thought process was organized and goal-directed. Thought content was appropriate. Cognition appeared grossly intact. He reported his sleep and appetite were good. The patient reported feeling safe and ready for discharge. PLAN: 1. Discharge today to home. 2. F/u at [facility] in [place], [place]. Intake scheduled on 05/24/16 at 8:30AM. 3. Indigent medication form was completed for Remeron 7.5mg tab, take 1 tab po at bedtime for insomnia/depression, #14, NR and Nicoderm CQ 7mg patch daily, #14 , NR. Prescriptions filled at Outpatient Pharmacy. Patient discharged with prescriptions. 4. In the event of an emergency, call 911/go to nearest emergency department. Patient verbalized understanding of instruction.
[2016-05-19 12:02] VITALS: BP 118/65
[2016-05-19 12:03] VITALS: BP 118/85
[2016-05-19] MEDS ORDERED: NICOTINE PATCH1 EAC1 TOP (13:49)
[2016-05-19] MEDS ORDERED: REMERON15 M2 PO (13:50)
--- NOTE | 2016-05-19 14:15 | DISCHARGE SUMMARY REPORT-PSYCH ---
Visit Information Visit Dates/Diagnosis' Admission Date: 05/17/16 Discharge Date: 05/19/16 Reason for Admission: Substance induced psychosis and suicidal ideation status-post crack/cocaine and alcohol intoxication. Psy Discharge Primary Diag: Unspecified Depressive Disorder Psy Discharge Secondary Diag: Substance induced psychosis; Adjustment disorder; Alcohol use disorder, severe; cocaine use disorder, severe; Nicotine use disorder Hospital Course Significant Lab Findings: Lab Sodium 136 mmol/L L 05/16/16 1251 Sodium 141 mmol/L 05/19/16 0554 Serum Alcohol 44.0 MG/DL 05/16/16 1251 Urine Cocaine Screen > 1000 NG/ML H 05/16/16 1258 05/16/16 EKG: Sinus rhythm with a rate of 87. Showed ST elevation, probable normal early repolarization pattern. IA: 156; QRSD: 82; QT: 356; QTc: 429; P: 78 ; QRS: 26; T:25. Normal EKG confirmed by director social service Dr. Martell Carey. Course Complications: None. Consultations: The patient was seen for admission history and physical by Dr. Danyel Allen. Please see his note for additional information. Allergies: Coded Allergies: Penicillins (Intermediate, HIVES 05/25/15) Hospital Course/TX Response: The patient was monitored on the unit for safety, suicidal ideation, auditory hallucinations and paranoia, and alcohol and crack/cocaine withdrawal. He participated in multimodal treatments on the unit. He was monitored on CIWA protocol for alcohol withdrawal during the hospital course and showed no objective signs of alcohol withdrawal. He did not report any subjective signs of alcohol withdrawal during the hospital course, or require prn Ativan. He was started on Remeron 7.5mg at bedtime for depression and insomnia. He reported tolerating medication well and denied untoward medication effects. During the hospital course, the patient's mood and affect improved. Suicidal ideation, paranoia, and auditory hallucinations remitted as he sobered from crack/cocaine. [employer] translation services were utilized daily to evaluate the patient's treatment progress. The patient did not want family involved in his care on the unit. However, prior to discharge, he allowed this film writer to speak and meet with him and his worship cable worker helper who was transporting the patient home post-discharge. This film writer reviewed the patient's treatment progress, reason for hospitalization, medication regimen, substance abuse history, and discharge plan with the patient's permission. The patient's worship cable worker helper was in favor of discharge plan and intake at [facility] on 05/24/16 at 8:30AM. The patient's worship cable worker helper reported that he would ensure the patient attended intake, and planned to take the patient on a worship retreat over this weekend until his scheduled intake at [facility] on 05/24/16. The patient and patient's cable worker helper were in favor of discharge plan. On the date of discharge, 05/19/16, [facility] pumper gager apprentice service was utilkelseyaed ( jaleesa Boles, ID#[id number]). The patient presented alert and oriented to person, place, time and situation. Speech was normal in rate, tone and volume. Eye contact was appropriate. He had no complaints. He reported his mood as "good." Affect was full-range. He reported depression of 0/10 (10 being the worst) and anxiety of 0/10 (10 being the worst). He denied feeling hopeless, helpless, worthless and guilty. He denied active and passive suicidal ideation, plans and intent. He denied homicidal ideation. He stated and also believed he will not harm himself or others. He showed improved judgement and insight, and was agreeable to referral to [facility] in [place], [place] for outpatient Kazakh- speaking dual diagnosis treatment. He appeared future-oriented to abstain from all substances and to resume participation in worship and mentorship with his worship cable worker helper. He denied paranoid ideation, auditory and visual hallucinations. There was no evidence of delusional thoughts or internal stimulation. Thought process was organized and goal-directed. Thought content was appropriate. Cognition appeared grossly intact. He reported his sleep and appetite were good. The patient reported feeling safe and ready for discharge. He verbalized a safety plan to call 911/go to nearest emergency department in the event of an emergency, or recurrence of symptoms. Discharge HBIPS - Tobacco Use Treatment Offered Post DC Medications Offered: Script Given-See Med List Post DC Tobacco Treatment Plan: [facility] Appt Date: 05/19/16 Program Appt Time: 1600 - EtOH/Drug Use D/O Treatment Offered Post DC Medications Offered: Ref Med EtOH/Drug Use D/O Post DC EtOH/SubAbuse TX Plan: Other SubAbuse/Dual Pgm Program Appt Date: 05/24/16 Program Appt Time: 08 Metabolic Screening - Screen if on a Neuroleptic Medication - Metabolic screening should include: - Blood Pressure, BMI, Glucose or Hgb A1c, & a - Lipid profile from within the past 365 days. Metabolic Screening ([X]) Not Applicable, patient not on a neuroleptic. OR () Patient on a neuroleptic(s) . Enter below results for Glucose or Hemoglobin A1C, and lipid panel if obtained during the last 365 days. BMI: 23.900 Blood Pressure: 118/85 Laboratory Results (If applicable): n/a Discharge Instructions General Discharge Information Discharge Medications: Discharge Medications- (Dose, route, freq, indication): HOME MEDICATION LIST START taking these NEW Home Medications: Mirtazapine Dose: ORAL, AT BEDTIME for Qty: 7 Called in to (Remeron) 15 MG 7.5 Milligram insomnia/depression Refills: 0 Pharm 1 TABLET Take 1/2 tab (7.5mg) by mouth at bedtime. Last Taken:05/18/16 Time:213 Nicotine (Nicotine Dose: On the skin, DAILY @8 AM Qty: 14 Called in to Patch) 7 MG/24 HOUR 7 Milligram for tobacco cessation Refills: 0 Pharm 1 PATCH.TD24 Apply 1 patch topically QAM and remove before bedtime. Last Taken:05/19/16 Time:0850 1: [facility], [address] [place], [place] [id number] All discharge prescriptions were called into [facility] and indigent medications were filled, and provided to patient on discharge. Your Preferred Pharmacy [facility] [address] [place] [address] Multiple Neuroleptics: ([X]) Not Applicable OR Document below three failed attempts at monotherapy, or a plan to taper to monotherapy, or augmentation of Clozapine. () Patient's Diet: Regular. Patient's Activity: No restrictions. DC Disposition: Patient to return home into the care of his worship cable worker helper. Recommendations: The patient was advised to please take his medications as prescribed. He was advised to abstain from all substances. He was advised to follow-up with scheduled intake at [facility] in [place], [place] on 05/24/16 at 8:30AM. He was advised that in the event of an emergency to call 911/go to nearest emergency department. All discharge instructions and recommendations were reviewed with the patient via [employer] translation service. Patient verbalized understanding of all instructions. Referred To: [facility] [address] [place], [place] [address] [phone] Intake appointment scheduled on 05/24/16 at 8:30AM. [facility] Smoking Cessation Program [address] [place] [address] (t)[phone] Walk-in to group on 05/19/16 at 4PM at above address. Please bring appointment card. Copies To: Smoking Cessation Program; [facility]
--- NOTE | 2016-05-19 14:18 | SOCIAL WORKER PROG NOTE PSYCH ---
Social Work Progress Note Progress Note Talked in team about possible discharge for Tyler today. Jana Paris APRN and I met with Tyler together using the [employer] system. Tyler reports he is doing well. Slept well, denies any auditory or visual hallucinations, does not have any thoughts of people following him anymore, denies SI/ HI. He feels ready to leave the hospital today. Offered assistance with setting up substance treatment for him in the community. He was open to the idea today. Told him I would be looking into [facility] or [facility] both in [place]. Asked if he would be able to get to [place]? He said yes. Reviewed releases for both programs and had him sign. I told him once we get an appt. we would get his discharge information together and he can work on getting home. He said he would walk or call for a ride. Called [facility] and spoke with Xavi [phone]. Xavi was able to set up an intake appt. for 05/24/16 at 8:30am. They will have a Turkmen speaking clinician do the intake. He does not have to have insurance for treatment there. Discharge information faxed to [phone].
--- NOTE | 2016-05-20 13:05 | History & Physical ---
General Information and HPI MD Statement: I have seen and personally examined HUYEN BYRNES and documented this H&P. The patient is a 25 year old M who presented with a patient stated chief complaint of "I feel like I are following me. Taking drugs]." Source of Information: patient Exam Limitations: language barrier History of Present Illness: 25-year-old male states that every time he uses crack he feels like he is going crazy it's paranoid states he doesn't want to live surface of dissection to drugs and he was planning to jump off a bridge through the patient has been using crack cocaine for the last few months and drinking 10-20 beers a day worsening since I will ideations last 2 or 3 days. He moved to the [facility] 3 years ago his enterprise language is Citizen Of [place], Allergies/Medications Allergies: Coded Allergies: Penicillins (Intermediate, HIVES 05/25/15) Home Med list Mirtazapine (Remeron) 15 MG TABLET 7.5 MG PO AT BEDTIME insomnia/depression Take 1/2 tab (7.5mg) by mouth at bedtime. Nicotine (Nicotine Patch) 7 MG/24 HOUR PATCH.TD24 7 MG TOP 0800 tobacco cessation Apply 1 patch topically QAM and remove before bedtime. Compliance With Home Meds: UNKNOWN Past History Travel History Traveled to [place] past 21 day No Medical History Neurological: NONE EENT: NONE Cardiovascular: NONE Respiratory: NONE Gastrointestinal: NONE Hepatic: NONE Renal: NONE Musculoskeletal: NONE Psychiatric: depression, substance abuse Endocrine: NONE Blood Disorders: NONE Cancer(s): NONE BINDING DYER/Reproductive: NONE History of CDIFF: No Isolation History: Standard Influenza Vaccine: 05/17/16 Surgical History Surgical History: non-contributory Past Family/Social History Psychosocial History ETOH Use: occasional use Illicit Drug Use: cocaine Review of Systems Review of Systems Constitutional: Reports: see HPI. Exam & Diagnostic Data Last 24 Hrs of Vital Signs/I&O Vital Signs Result Date Time B/P 118/85 05/19 1203 Pulse 81 05/19 1203 Temp 96.0 05/19 0800 Resp 16 05/17 1425 Pulse Ox 97 05/17 1424 O2 Delivery Room Air 05/17 1424 Physical Exam General Appearance Alert, Oriented X3, Cooperative, No Acute Distress Skin No Rashes, No Breakdown, No Significant Lesion HEENT Atraumatic, PERRLA, EOMI, Mucous Membr. moist/pink Neck Supple, No JVD, No thryomegaly, +2 Carotid Pulse wo Bruit, No LAD Lymphatic Axillary nl, Cervical nl Cardiovascular Regular Rate Lungs Clear to Auscultation, Normal Air Movement Abdomen Normal Bowel Sounds, Soft, No Tenderness, No Hepatospenomegaly, No Masses Neurological Exam Findings: Normal Gait, Normal Speech, Strength at 5/5 X4 Ext, Normal Tone, Sensation Intact, Cranial Nerves 3-12 NL, Reflexes 2+ Cranial Nerves II through XII: Intact Extremities No Edema, Normal Pulses, No Tenderness/Swelling Last 24 Hrs of Labs/Johnson: Laboratory Tests 05/19/16 0554: Diagnostic Data ITS Data Unobtainable at this time Assessment/Plan As Ranked By This Provider Problem List: 1. Cocaine abuse 2. Alcohol abuse 3. Suicidal ideation Miscellaneous Miscellaneous Documentation Attending Case Discussed With: KIMBERLY EUGENE,ALEXSANDRA Primary Care Physician: PATIENT HAS NO PRIMARY CARE DR Patient sees these Specialists Psychiatry Level of Patient Care: Cyrus Consults Needed: Consulting Specialty: Psychiatry Consulting Physician: Dr Engle Reason for Consult: suicidal ideations and drug abuse
== END 2016-05-19 15:56 | DRG 881 ==
LOC: ENRESERVDT → ENRESERVTM → ERH 11:21 → CP SOUTH 05-17 14:22 → ENPENDDIS 05-17 14:22 → ERHI 05-17 14:22 → CP SOUTH 05-17 14:54
PROVIDERS: Student in an Organized Health Care Education/Training Program; ADMIT Psychiatry & Neurology Psychiatry
DX: F32.9 Major depressive disorder, single episode, unspecified (principal); F14.20 Cocaine dependence, uncomplicated; F19.959 Other psychoactive substance use, unspecified with psychoactive substance-induced psychotic disorder, unspecified; F43.20 Adjustment disorder, unspecified; F10.20 Alcohol dependence, uncomplicated; Z72.0 Tobacco use
CPT/HCPCS: 36415; 80307; 81003; 93005; 93010; 96360; 96361; G0463; G0480; Q2036

== ENCOUNTER 2016-08-20 09:41 | Emergency (ER) | payer OTHER ==
[~2016-08-20] VITALS: Ht 170.2 cm; Wt 63.5 kg
[~2016-08-20 09:41] MED LIST changes: +NICOTINE PATCH1 EAC1 TOP; +REMERON15 M2 PO
--- NOTE | 2016-08-20 09:52 | ED THROAT/DENTAL COMPLAINT ---
History of Present Illness General Chief Complaint: Sore Throat, Dental Pain Stated Complaint: "PER PT SORE THROAT" Source: patient, ASTROCHEMIST Exam Limitations: language barrier Vital Signs & Intake/Output Vital Signs & Intake/Output Vital Signs Date Time Temp Pulse Resp B/P B/P Pulse O2 O2 Flow FiO2 Mean Ox Delivery Rate 08/20 1131 98.0 89 15 124/74 100 Room Air 08/20 1003 99 Room Air 08/20 0958 97 08/20 0942 96.8 101 18 129/80 95 Room Air Allergies Coded Allergies: Penicillins (Intermediate, HIVES 05/25/15) Reconcile Medications Albuterol Sulfate (Proair Hfa) 90 MCG HFA.AER.AD 2 PUF INH Q4-6 PRN PRN DYSPNEA Mirtazapine (Remeron) 15 MG TABLET 7.5 MG PO AT BEDTIME insomnia/depression Take 1/2 tab (7.5mg) by mouth at bedtime. Nicotine (Nicotine Patch) 7 MG/24 HOUR PATCH.TD24 7 MG TOP 0800 tobacco cessation Apply 1 patch topically QAM and remove before bedtime. Triage Note: 26 Y/O MALE C/O 2 DAY HISTORY COUGH AND CHEST PAIN; HX USING "CRACK", LAST USE LAST NIGHT. PT REPORTS SUBJECTIVE FEVERS, AFEBRILE IN TRIAGE. SAT 95% RA TAKEN TO ROOM FOR EKG/EVAL Triage Nurses Notes Reviewed? yes Onset: Abrupt Duration: day(s): (1) Timing: multiple episodes today Injury Environment: home Severity: mild, moderate No Modifying Factors: none Associated Symptoms: cough, SORE THROAT HPI: 26-year-old Filipino speaking male who presents to the ER for chief complaint of cough and sore throat. Patient denies any fever or chills. He admits to smoking crack yesterday. Past History Travel History Traveled to [place] past 21 day No Medical History Any Pertinent Medical History? see below for history Neurological: NONE EENT: NONE Cardiovascular: NONE Respiratory: NONE Gastrointestinal: NONE Hepatic: NONE Renal: NONE Musculoskeletal: NONE Psychiatric: depression, substance abuse Endocrine: NONE Blood Disorders: NONE Cancer(s): NONE OPERATIONS RESEARCH GROUP MANAGER/Reproductive: NONE History of CDIFF: No Influenza Vaccine: 05/17/16 Surgical History Surgical History: non-contributory Psychosocial History Who do you live with Brother What is your primary language Norwegian Tobacco Use: Current Daily Use Daily Tobacco Use Amount/Type: =< 4 Cigarettes daily Family History Hx Contributory? No Review of Systems Review of Systems Constitutional: Denies: chills, fever. EENTM: Reports: throat pain. Respiratory: Reports: cough. Denies: short of breath, sputum production. Cardiovascular: Reports: chest pain. GI: Reports: no symptoms. Genitourinary: Reports: no symptoms. Musculoskeletal: Reports: no symptoms. Skin: Reports: no symptoms. Neurological/Psychological: Reports: no symptoms. Hematologic/Endocrine: Denies: bruising, bleeding. Immunologic/Allergic: Reports: no symptoms. All Other Systems: Reviewed and Negative Physical Exam Physical Exam General Appearance: well developed/nourished, alert, awake Head: atraumatic Eyes: Bilateral: PERRL, EOMI. Nose: normal inspection Mouth/Throat: PHARYNGEAL ERYTHEMA Neck: normal inspection, supple, full range of motion Cardiovascular/Respiratory: DIMINISHED BREATH SOUNDS Gastrointestinal: SOFT NONTENDER Neurologic/Psych: no motor/sensory deficits, awake, alert, oriented x 3 Skin: intact, normal color, warm/dry Core Measures ACS in differential dx? Yes Severe Sepsis Present: No Septic Shock Present: No Progress Differential Diagnosis: PTX, AMI, PULMONARY EDEMA, BRONCHITIS, PNEUMONIA Plan of Care: Orders Procedure Date/time Status TROPONIN LEVEL 08/20 0951 Complete COMPREHENSIVE METABOLIC PANEL 08/20 0951 Complete CBC WITHOUT DIFFERENTIAL 08/20 0951 Complete RT ED ORDERS 08/20 0948 Active THROAT CULTURE W/QUICK STREP 08/20 0948 Active EKG 08/20 0944 Active Laboratory Tests 08/20/16 1005: Anion Gap 12, Estimated GFR > 60, BUN/Creatinine Ratio 7.0, Glucose 85, Calcium 9.1, Total Bilirubin 0.9, AST 26, ALT 45, Alkaline Phosphatase 94, Troponin I < 0.01, Total Protein 7.2, Albumin 4.2, Globulin 3.0, Albumin/Globulin Ratio 1.4, CBC w Diff NO MAN DIFF REQ, RBC 4.66 L, MCV 89.4, MCH 30.4, RDW 13.3, MPV 7.5, Gran % 69.9, Lymphocytes % 15.8 L, Monocytes % 13.6 H, Eosinophils % 0.2, Basophils % 0.5, Absolute Granulocytes 6.2, Absolute Lymphocytes 1.4, Absolute Monocytes 1.2 H, Absolute Eosinophils 0, Absolute Basophils 0, PUBS MCHC 34.0 08/20/16 0951: Methadone Screen Cancelled, Barbiturate Screen Cancelled, Ur Phencyclidine Scrn Cancelled, Amphetamines Screen Cancelled, U Benzodiazepines Scrn Cancelled, Urine Cocaine Screen Cancelled, Urine Cannabis Screen Cancelled CXR NEGATIVE. LABS WNL. PATIENT ASYMPTOMATIC AFTER ATIVAN ADMINISTRATION. (ROSA EUGENE,CHEYANNE) Diagnostic Imaging: Viewed by Me: Radiology Read. Discussed w/RAD: Radiology Read. CXR Impression: PATIENT: HUYEN BYRNES PRESENT AGE: 26 PATIENT ACCOUNT NO: [id number] : 90 LOCATION: [facility] ORDERING PHYSICIAN: CHEYANNE LEE MD SERVICE DATE: 08/20/16 EXAM TYPE: RAD - XRY-CHEST XRAY , PA AND LATERAL EXAMINATION: XR CHEST CLINICAL INFORMATION: Cough after smoking cocaine. Evaluate for pneumothorax. COMPARISON: CXR from 05/16/2016 TECHNIQUE: 2 views of the chest were obtained. FINDINGS: Lungs are well expanded and clear. No evidence of interstitial disease, focal consolidation, pleural effusion or pneumothorax. Cardiac silhouette is normal in size. The mediastinal, hilar and diaphragmatic contours are normal. The bones are normal. IMPRESSION: No acute cardiopulmonary abnormality. DICTATED BY: NILSA MCLAUGHLIN MD DATE/TIME DICTATED: 08/20/161001 ECOLOGY PROFESSOR:JUAN DATE/TIME TRANSCRIBED:08/20/161001 CONFIDENTIAL, DO NOT COPY WITHOUT APPROPRIATE AUTHORIZATION. <Electronically signed in Other Vendor System> SIGNED BY: NILSA MCLAUGHLIN MD 08/20/16 1007 Initial ED EKG: NSR, PERSISTENT ST ELEVATION V1, V2 ST DEPRESSION III Prior EKG: unchanged Departure Departure Time of Disposition: 1103 Disposition: HOME OR SELF CARE Condition: Stable Clinical Impression Primary Impression: URI (upper respiratory infection) Secondary Impressions: Bronchospasm Referrals: PATIENT HAS NO PRIMARY CARE DR (PCP/Family) Additional Instructions: STOP ABUSING COCAINE USE THE INHALER NEEDED YOUR PRESCRIPTION IS AT [facility] Departure Forms: Customer Survey General Discharge Information Prescriptions: Current Visit Scripts Albuterol Sulfate (Proair Hfa) 2 PUF INH Q4-6 PRN PRN DYSPNEA #1 INHAL
--- NOTE | 2016-08-20 10:07 | RADIOLOGY REPORT ---
EXAMINATION: XR CHEST CLINICAL INFORMATION: Cough after smoking cocaine. Evaluate for pneumothorax. COMPARISON: CXR from 05/16/2016 TECHNIQUE: 2 views of the chest were obtained. FINDINGS: Lungs are well expanded and clear. No evidence of interstitial disease, focal consolidation, pleural effusion or pneumothorax. Cardiac silhouette is normal in size. The mediastinal, hilar and diaphragmatic contours are normal. The bones are normal. IMPRESSION: No acute cardiopulmonary abnormality.
[2016-08-20 10:20] LABS: ABSOLUTE BASOPHIL COUNT 0 /CUMM (0.0-0.2); ABSOLUTE EOSINOPHIL COUNT 0 /CUMM (0.0-0.7); ABSOLUTE GRANULOCYTE CT 6.2 /CUMM (1.4-6.5); ABSOLUTE LYMPH COUNT 1.4 /CUMM (1.2-3.4); ABSOLUTE MONOCYTE COUNT 1.2 /CUMM (0.10-0.60); BASOPHIL % 0.5 % (0.0-2.0); EOSINOPHIL % 0.2 % (0-5); GRANULOCYTE % 69.9 % (42.2-75.2); HEMATOCRIT 41.7 % (42-52); MEAN CORPUSCULAR HGB 30.4 PG (27.0-31.0); MEAN CORPUSCULAR VOLUME 89.4 FL (80.0-94.0); MEAN PLATELET VOLUME 7.5 FL (7.4-10.4); PLATELET COUNT 220 /CUMM (130-400); RBC DISTRIBUTION WIDTH 13.3 % (11.5-14.5); RED BLOOD CELL CT 4.66 /CUMM (4.70-6.10); WHITE BLOOD CELL COUNT 8.9 /CUMM (4.8-10.8)
[2016-08-20] MEDS ORDERED: PROAIR HFA8.5 GM INH (11:04)
[2016-08-20 11:31] VITALS: BP 124/74
== END 2016-08-20 11:39 ==
LOC: ERH 09:41
PROVIDERS: Emergency Medicine
DX: J06.9 Acute upper respiratory infection, unspecified (principal); J98.01 Acute bronchospasm; Z72.0 Tobacco use; J02.9 Acute pharyngitis, unspecified; R50.9 Fever, unspecified
CPT/HCPCS: 1263; 80307; 93005; 93010

== ENCOUNTER 2016-08-23 09:06 | Inpatient (IN) | payer SELFPAY ==
[~2016-08-23] VITALS: Ht 165.1 cm; Wt 68.0 kg
[~2016-08-23 09:06] MED LIST changes: +PROAIR HFA8.5 GM INH
--- NOTE | 2016-08-23 10:10 | ED PSYCHIATRIC COMPLAINT ---
History of Present Illness General Chief Complaint: Dizziness Stated Complaint: DIZZY SINCE LAST NIGHT Source: patient Exam Limitations: no limitations Vital Signs & Intake/Output Vital Signs & Intake/Output Vital Signs Date Time Temp Pulse Resp B/P B/P Pulse O2 O2 Flow FiO2 Mean Ox Delivery Rate 08/25 0804 96.5 73 109/59 08/24 2017 97.7 71 126/73 08/24 1628 73 131/72 08/24 1245 67 117/71 Allergies Coded Allergies: Penicillins (Intermediate, HIVES 05/25/15) Reconcile Medications Albuterol Sulfate (Proair Hfa) 90 MCG HFA.AER.AD 2 PUF INH Q4-6 PRN PRN DYSPNEA Triage Note: 26 YO MALE TO TRIAGE C/O DIZZINESS SINCE LAST PM. PT ONLY SPEAKS WELSH. Triage Nurses Notes Reviewed? yes HPI: Patient presents for evaluation of anxiety. He states that he has scared to go outside, symptom onset abruptly last night. In addition he admits to crack cocaine use 3 days ago and binge drinking on the weekends, last used yesterday. He states he is feeling suicidal wishing to jump off a bridge or in front of a car. In addition he states his whole body hurts and he feels dizzy. Symptoms are described as constant and severe and nothing seems to make him feel better. Past History Travel History Traveled to [place] past 21 day No Medical History Any Pertinent Medical History? 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 No Review of Systems Review of Systems Constitutional: Reports: no symptoms. EENTM: Reports: no symptoms. Respiratory: Reports: no symptoms. Cardiovascular: Reports: no symptoms. GI: Reports: no symptoms. Genitourinary: Reports: no symptoms. Musculoskeletal: Reports: no symptoms. Skin: Reports: no symptoms. Neurological/Psychological: Reports: see HPI. Hematologic/Endocrine: Reports: no symptoms. Immunologic/Allergic: Reports: no symptoms. All Other Systems: Reviewed and Negative Physical Exam Physical Exam General Appearance: see below Neurological/Psychiatric: see below Comments: General: Alert, calm, cooperative Head: Normocephalic, atraumatic Eyes: Normal inspection, no nystagmus, EOMI Ears: Normal inspection Nose: Normal inspection Throat: Moist mucosa Neck: Supple, no goiter Heart: Regular rate and rhythm, no murmurs rubs or gallops Lungs: Clear to auscultation bilaterally with good air entry Abdomen: Soft nontender nondistended, normal bowel sounds Chest: Nontender Extremities: Normal range of motion grossly, mild tremors present, no cyanosis clubbing or edema of the upper extremities Neurologic: cranial nerves II through XII grossly intact, speech clear, gait normal Psychiatric: No apparent delusions or hallucinations, no pressured speech or thought blocking, distant affect SAD PERSONS Done? deferred to crisis Progress Differential Diagnosis: drug use, anxiety,psychosis, personality disorder Plan of Care: Orders Procedure Date/time Status INIT HSP (50 MIN) 08/24 UNK Complete Current Medications Sig/Gerry Start time Last Medication Dose Stop Time Status Admin Nicotine 7 MG DAILY 08/25 1000 AC 08/25 (Nicotine Cq) 0851 Nicotine 2 MG Q2 HRS NEEDED PRN 08/24 141 AC (Nicotine) Sertraline HCl 50 MG DAILY 08/24 1000 AC 08/25 (Zoloft) 0851 Acetaminophen 650 MG Q4P PRN 08/23 1914 AC (Tylenol) Al Hydroxide/Mg 30 ML Q4-6 PRN PRN 08/23 1914 AC Hydroxide (Maalox Plus) Albuterol Sulfate 2 PUF Q4P PRN 08/23 1914 AC (Ventolin) Haloperidol 2 MG Q4 HRS NEEDED PRN 08/23 1914 AC (Haldol 2MG Tablet) Lorazepam 1 MG Q4 HRS NEEDED PRN 08/23 1914 AC (Ativan) Magnesium Hydroxide 30 ML AT BEDTIME PRN 08/23 1914 AC (Milk Of Magnesia) Trazodone HCl 50 MG AT BEDTIME PRN 08/23 1914 AC (Desyrel) Departure Departure Disposition: STILL A PATIENT Condition: Stable Clinical Impression Primary Impression: Cocaine abuse Secondary Impressions: Anxiety, Suicide ideation Referrals: PATIENT HAS NO PRIMARY CARE DR (PCP/Family) Departure Forms: Customer Survey General Discharge Information
[2016-08-23 10:35] LABS: ABSOLUTE BASOPHIL COUNT 0 /CUMM (0.0-0.2); ABSOLUTE EOSINOPHIL COUNT 0.1 /CUMM (0.0-0.7); ABSOLUTE GRANULOCYTE CT 2.8 /CUMM (1.4-6.5); ABSOLUTE LYMPH COUNT 1.8 /CUMM (1.2-3.4); ABSOLUTE MONOCYTE COUNT 0.5 /CUMM (0.10-0.60); BASOPHIL % 0.7 % (0.0-2.0); EOSINOPHIL % 1.9 % (0-5); GRANULOCYTE % 52.2 % (42.2-75.2); HEMATOCRIT 43.6 % (42-52); MEAN CORPUSCULAR HGB 30.3 PG (27.0-31.0); MEAN CORPUSCULAR HGB CONC 33.7 G/DL (33.0-37.0); MEAN PLATELET VOLUME 7.4 FL (7.4-10.4); PLATELET COUNT 264 /CUMM (130-400); RBC DISTRIBUTION WIDTH 13.2 % (11.5-14.5); RED BLOOD CELL CT 4.85 /CUMM (4.70-6.10); WHITE BLOOD CELL COUNT 5.3 /CUMM (4.8-10.8)
--- NOTE | 2016-08-23 12:50 | ED PSY CRISIS COLLATERAL NOTE ---
Collateral Note Collateral Note Family/Inform/Mita Contacts: Patient is a 26 year old single male who [place] lived [place] the [place] for the past 3 years. He is from [place], and reports indicate that he has not adjusted well here, and often states that he would rather return to [place] where his mother lives. I spoke with Corrine Cedeno, a friend, who emphasized that they were not together as couple, and was vague about whether they had been in past. I also spoke with Ayaz who is his uncle, and who states that he/they have tried to help him adjust, but patient has learned very little moroccan and has not gotten job, nor has he gotten any insurance or benefits. Per Ayaz, patient is drug user, and they have been unsuccessful at getting him to stop, and that they wish we could force him to go to a rehab and get clean. Patient admitted in April, for similar E R presentation, and was [place] [facility] [place] for 2 [place], and referred to Ethiopian speaking program at [facility] in [place] for substance abus; however, he never went, and has been using crack steadily. Patient positive for cocaine and has some cannabis as well.
--- NOTE | 2016-08-23 15:53 | ED PSYCH CRISIS CONSULTATION ---
Crisis Consult Basic Assessment Date of Consult: 08/23/16 Responsible Person/Accompanied By: uncle Dumont Insurance Authorization: Insurance #1: Insurance name: SELF-PAY Phone number: Policy number: Group number: Authorization number: ED Provider: Patient's ED Provider: ZIA URIAS MD Primary Care Physician: Patient's PCP: PATIENT HAS NO PRIMARY CARE DR PCP's Phone Number: Current Psychiatrist: none Chief Complaint: Dizziness Patient's Quote: Pt. told staff he felt suicidal, and needed to be in hospital for a few day Present Illness: Patient is a 26 year old male who came to [facility].D this morning with complaint of dizzyness. He then told the E D staff that he was feeling suicidal, and that he had been having thoughts of jumping off a high place. [place] came [place] from [facility] 3 [place] ago, and his mother and some family still live there. Patient has been using crack coccaine and cannabis, and had been positive for coccaine today. Interview was conducted through [employer]. Spoke with patient's family ( female friend and uncle , Ayaz), and they report trying to help patient, but being unsuccessful at getting him into a program, or getting him to stop using drugs. Patient provided rather sparse answers, and seemed to be very guarded and fearful. Despite that fact, he clearly stated that he did feel that he would be at risk to hurt himself if discharged, and indicated that he would hope to be admitted here, as he had been last April of this year. At that time he was referred to [facility], cymro speaking substance program in [place] at [facility]. Patient stated that he did not follow-up, but states that he would follow up if he were referred there again. It is not clear at this point if patient has a place to live, as he says that he does not, but uncle did not state that he could not stay with him. Patient is alert and orientedx 3; but a bit evasive, although perhaps some concepts were lost in translation. At present patient reports that he is hearing people tell him to jump from a high place, and he feels he is a danger to self. Patient's Address: [address] [place] [address] Other Phone Number: Who Do You Live With? Brother Family/Informants Interviewed: uncle, Ayaz Cedeno Allergies - Coded Allergies: Penicillins (Intermediate, HIVES 05/25/15) Current Medications - Scheduled PRN Medications Albuterol Sulfate (Proair Hfa) 90 MCG HFA.AER.AD 2 PUF INH Q4-6 PRN PRN DYSPNEA #1 INHAL Prescribed by CHEYANNE LEE MD on 08/20/16 Laboratory Results: Laboratory Tests 08/23/16 1026: Urine Opiates Screen < 100.00, Methadone Screen < 40, Barbiturate Screen 63, Ur Phencyclidine Scrn < 6.00, Amphetamines Screen 126, U Benzodiazepines Scrn < 85, Urine Cocaine Screen > 1000.0 H, Urine Cannabis Screen 11.10 08/23/16 1019: Anion Gap 13, Estimated GFR > 60, BUN/Creatinine Ratio 15.6, Glucose 82, Calcium 9.6, CBC w Diff NO MAN DIFF REQ, RBC 4.85, MCV 90.0, MCH 30.3, RDW 13.2, MPV 7.4 , Gran % 52.2, Lymphocytes % 34.8, Monocytes % 10.4 H, Eosinophils % 1.9, Basophils % 0.7, Absolute Granulocytes 2.8, Absolute Lymphocytes 1.8, Absolute Monocytes 0.5, Absolute Eosinophils 0.1, Absolute Basophils 0, PUBS MCHC 33.7, Serum Alcohol < 10.0 Past History Past Medical History Neurological: NONE EENT: NONE Cardiovascular: NONE Respiratory: NONE Gastrointestinal: NONE Hepatic: NONE Renal: NONE Musculoskeletal: NONE Psychiatric: depression, substance abuse Endocrine: NONE Blood Disorders: NONE Cancer(s): NONE 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 Reason for Treatment suicidal ideation Dates of Treatment 05-17-16-05-19-16 Response to Treatment pt felt better and d/c a nd referred to O.P. program Diagnosis by History: F32.9 Unspecified Depression F14.2 Cocaine Use Disorder, Severe F10.20 Alcohol Use Disorder, Severe Substance Use/Abuse History Drug Use/Abuse Substances Used/Abused Yes Substance Used/Abused Cocaine First Use 2 years ago Last Used yesterday How much used/taken very vague. "a lot" How often as often as possible. maybe almost every day For how long 2 years Route of use smoke Substance Abuse Treatment Substance Abuse Treatment Past Substance Abuse [place] No Comments: Patient was a referred to [facility] program Current Mental Status Mental Status Orientation: Person, Place, Situation Affect: Anxious, Constricted, Sad Speech: Delayed, Pressured Neuro-vegetative: Sexual Interest Decreased, Sleep Disturbance Appearance Appearance- Dress/Hygiene: neat in scrubs Behaviors Thought Process: Tangential Thought Content: Auditory Hallucinations Memory: WNL Insight: Fair SI/HI Risk Assessment Past Suicidal Ideation/Attempts Yes Current Suicidal Ideation/Att Yes Past Homicidal Ideation/Att: No Current Homicidal Ideation/Attempts No Degree of Intent: Thoughts/No Intent Risk Factors: access to lethal means, high anxiety/distress, SA/MH hospitalized, substance abuse, isolate/no social support, male, limited support Lethality Ratin PTSD Checklist PTSD Done? pt unable to participate ED Management Sitter: Yes Restraints: No DSM5/PS Stressors/Medical Prob Diagnosis' (DSM 5, Stressors, Medical): Unspecified Depression F32.9 Cocaine Use disorder, severe F14.20 Alcohol Use disorder, moderate F 10.20 Cannabis use disorder,moderate F12.20 Current GAF: 28 Comments: Patient reports that he feels at risk to self as he has been hearing "things" saying he should jump from a high place Departure Disposition Psych Medical Clearance Date: 08/23/16 Medically Cleared at: 1300 Time Started: 1315 Time Ended: 1405 Psychiatrist Consulted: Dr Fitzpatrick Date Disposition Established: 08/23/16 Time Disposition Established: 1455 Plan for Disposition - Modality: Inpatient Psychiatry Facility: [facility] Rationale for Disposition: patientr states he fears he would act on thoughts to jump off a bridge or a high place and kill himself Type of IP Admission: Voluntary Additional Instructions: Patient speaks almost NO [place] being [place] Referrals PATIENT HAS NO PRIMARY CARE DR (PCP/Family)
--- NOTE | 2016-08-23 17:15 | IP CRISIS DIAG ASSESS PSYCH ---
LON DUENAS 08/23/16 1708: Diagnostic Assessment Basic Assessment Insurance Authorization: Insurance #1: Insurance name: SELF-PAY Phone number: Policy number: Group number: Authorization number: Placed call to [facility] to obtain temporaray ID for pt, however , [facility] memory care director needed a social security number in order to assign a temporary ID. Pt. does not have a social security number so no temp ID could be obtained. [facility] memory care director said to try to call back on Thursday 08/24 and someone would possibly be able to assign a temp ID without needing the social security number. . Primary Care Physician: Patient's PCP: PATIENT HAS NO PRIMARY CARE DR PCP's Phone Number: Patient's Quote: Pt. told staff he felt suicidal, and needed to be in hospital for a few day Present Illness: Patient is a 26 year old male who came to [facility].D this morning with complaint of dizzyness. He then told the E D staff that he was feeling suicidal, and that he had been having thoughts of jumping off a high place. Patient came to [place] from [facility] 3 years ago, and his mother and some family still live there. Patient has been using crack coccaine and cannabis, and had been positive for coccaine today. Interview was conducted through [email or web address]. Spoke with patient's family ( female friend and uncle , Ayaz), and they report trying to help patient, but being unsuccessful at getting him into a program, or getting him to stop using drugs. Patient provided rather sparse answers, and seemed to be very guarded and fearful. Despite that fact, he clearly stated that he did feel that he would be at risk to hurt himself if discharged, and indicated that he would hope to be admitted here, as he had been last April of this year. At that time he was referred to [facility], azeri speaking substance program in [place] at [facility]. Patient stated that he did not follow-up, but states that he would follow up if he were referred there again. It is not clear at this point if patient has a place to live, as he says that he does not, but uncle did not state that he could not stay with him. Patient is alert and orientedx 3; but a bit evasive, although perhaps some concepts were lost in translation. At present patient reports that he is hearing people tell him to jump from a high place, and he feels he is a danger to self. Patient's Address: [address] [place] [address] [place] [address] Other Phone Number: Who Do You Live With? Brother Feel Safe Where You Live? Yes Feel Safe in Your Relationship Yes Marital Status: single Do You Have Children? No Primary Language? Belarusian Language(s) Spoken At Home: Belarusian Family/Informants Interviewed: uncle, Ayaz Cedeno Allergies - Coded Allergies: Penicillins (Intermediate, HIVES 05/25/15) Consequences of Psych Med Use: n/a Comment: n/a Lab Results: Laboratory Tests 08/23/16 1026: Urine Opiates Screen < 100.00, Methadone Screen < 40, Barbiturate Screen 63, Ur Phencyclidine Scrn < 6.00, Amphetamines Screen 126, U Benzodiazepines Scrn < 85, Urine Cocaine Screen > 1000.0 H, Urine Cannabis Screen 11.10 08/23/16 1019: Anion Gap 13, Estimated GFR > 60, BUN/Creatinine Ratio 15.6, Glucose 82, Calcium 9.6, CBC w Diff NO MAN DIFF REQ, RBC 4.85, MCV 90.0, MCH 30.3, RDW 13.2, MPV 7.4 , Gran % 52.2, Lymphocytes % 34.8, Monocytes % 10.4 H, Eosinophils % 1.9, Basophils % 0.7, Absolute Granulocytes 2.8, Absolute Lymphocytes 1.8, Absolute Monocytes 0.5, Absolute Eosinophils 0.1, Absolute Basophils 0, PUBS MCHC 33.7, Serum Alcohol < 10.0 Toxicology Screen Completed? Yes Results: positive (for cocaine) Symptoms of Use: unk Past History Past Medical History Medical History: None/Denies Past Surgical History Surgical History none Abuse/Trauma History Trauma History/Current Trauma: Denies Legal History Current Legal Status: none Have you ever been arrested? 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 program Diagnosis by History: F32.9 Unspecified Depression F14.2 Cocaine Use Disorder, Severe F10.20 Alcohol Use Disorder, Severe Risk Factors: access to lethal means, high anxiety/distress, SA/MH hospitalized, substance abuse, isolate/no social support, male, limited support Substance Use/Abuse History Drug Use/Abuse minimum 12mo Hx Substances Used/Abused Yes Substance Used/Abused Cocaine First Use 2 years ago Last Used yesterday How much used/taken very vague. "a lot" How often as often as possible. maybe almost every day For how long 2 years Route of use smoke Substance Abuse Treatment Substance Abuse Treatment Past Substance Abuse [place] No Comments: n/a Sexual History Sexually Active Yes # of partners 0 Sexual Orientation Heterosexual Use of Protection Yes Sometimes Sexual Concerns: n/a Education History Highest Level of Education: high school/GED Preferred Learning Style: experiential Current Mental Status Mental Status Orientation: Person, Place, Situation Affect: Anxious, Constricted, Sad Speech: Delayed, Pressured Neuro-vegetative: Sexual Interest Decreased, Sleep Disturbance Appearance Appearance- Dress/Hygiene: neat in scrubs Behaviors Thought Process: Tangential Thought Content: Auditory Hallucinations Memory: WNL Insight: Fair SI/HI Risk Assessment - Minimum 6mo History- Past Suicidal Ideation/Attempts Yes Current Suicidal Ideation/Att Yes Past Homicidal Ideation/Att: No Current Homicidal Ideation/Attempts No Degree of Intent: Thoughts/No Intent Danger To: Self Gravely Disabled: none Risk Factors: access to lethal means, high anxiety/distress, SA/MH hospitalized, substance abuse, isolate/no social support, male, limited support Lethality Ratin Needs/Init TX Plan/Goals: Admit to inpatient unit for safety and symptoms stabilization; Med eval and management; Indiv, family and group therapy; D/C planning and placement. AUDIT-C Questionnaire: AUDIT-C Questionnaire: Response Value ETOH use in the past year Never 0 # drinks typical/day Doesn't Drink 0 6 or > drinks per occasion Never 0 Total 0 DSM5/PS Stressors/Medical Prob Diagnosis' (DSM 5, Stressors, Medical): Unspecified Depression F32.9 Cocaine Use disorder, severe F14.20 Alcohol Use disorder, moderate F 10.20 Cannabis use disorder,moderate F12.20 Current GAF: 28 Comments: Patient reports that he feels at risk to self as he has been hearing "things" saying he should jump from a high place RAVINDRA MCCURDY 08/24/16 0938: Diagnostic Assessment Current Medications - Scheduled PRN Medications Albuterol Sulfate (Proair Hfa) 90 MCG HFA.AER.AD 2 PUF INH Q4-6 PRN PRN DYSPNEA #1 INHAL Prescribed by CHEYANNE LEE MD on 08/20/16 Last Taken: At an unknown date and time Current Mental Status SI/HI Risk Assessment - Minimum 6mo History- Addendum Addendum Spoke to Janie at [facility] who informed that a TEMP ID can not be generated.
[2016-08-23 21:12] VITALS: BP 131/69
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
[2016-08-24 08:11] VITALS: BP 109/62
--- NOTE | 2016-08-24 10:24 | CPS MD/APRN INITIAL ASSE PSYCH ---
Psychiatric Admission Financial Administration Officer's Note Reviewed: Yes Patient Seen and Examined: Yes Identifying Information: 25 y/o single, Syrian, male with limited supports, a history of unspecified depressive disorder and polysubstance abuse (crack, etoh)who moved to the [place] 3 years ago. Patient previously hospitalized on [facility] for similar circumstances in April 2016. Patient represented to ED s/p cocaine intoxication with subsequent CAH and SI along with plan to jump off a bridge. Chief Complaint: "I came here because I wasn't feeling well. I had anxiety. I wanted to harm myself." Reaction to Hospitalization: agreeable History of Present Illness Onset of Illness: 2016 Circumstances Leading to Admission: --crack/cocaine intoxication/abuse --unstable housing --limited social supports --unstable employment --nonadherence to outpatient psych tx/medications --limited judgement/insight surrounding the impact of substance abuse on his mental health Problem(s) Justifying Need for Admission: --CAH/SI with plan to jump of bridge s/p crack/cocaine intoxication Other HPI: Patient interviewed with [email or web address] translation services. Physician Office Rep ID: [id number]. Patient expressed vague depressive symptoms with some variation in appetite and sleep. He further expressed anxiety but could not identify the source or triggers of it. Appears to self medicate symptoms with illicits. Denied further episodes of AH. Reports that in he past AH has occured only in the context of substance abuse and resolves with sobriety. Denied VH, PI, HI. He denied further thoughts of suicide or to harm self. Past Psychiatric History Past Diagnosis(es)- if any: Unspecified Depressive Disorder Substance-induced psychosis Adjustment disorder Cocaine use disorder, severe Alcohol use disorder, severe Nicotine use disorder Past Precipitating Factors- if any: --Adjusting from [facility] to the . --Polysubstance abuse - Include inpatient and outpatient treatment Treatment History: --[facility] (05/17/16 - 05/19/16) --[facility] post-discharge from [facility], but patient did not attend intake History of Suicide Attempts or Gestures denied Substance Abuse History: crack/cocaine 1-2 x week etoh, 1-2 beers week denies hx of complicated etoh withdrawal Allergies: Coded Allergies: Penicillins (Intermediate, HIVES 05/25/15) Home Med List: --None -- Had been discharged home from [facility], on 05/19/16, on Remeron 7.5mg QHS for insomnia and Nicoderm CQ 7mg patch daily - Include any medical condition(s) that may - impact the patient's recovery/remission Past History Medical History Neurological: NONE EENT: NONE Cardiovascular: NONE Respiratory: NONE Gastrointestinal: NONE Hepatic: NONE Renal: NONE Musculoskeletal: NONE Psychiatric: depression, psychosis, substance abuse Endocrine: NONE Blood Disorders: NONE Cancer(s): NONE 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 His uncle left home, patient subsequently left as he was unable to afford to stay there. Significant Relationships (family/friends): Uncle, limits supports Education: Educated in [facility]. Equivalent to freshman year of [place]S. in [place]. 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 Legal: denied Health[employer] Behaviors Screening Tobacco Screening Tobacco Use from ED Docu: Current Daily Use Daily Tobacco Use Amount/Type: => 5 Cigarettes daily - If tobacco counseling indicated - the following topics are required. - #1 Recognizing dangerous situations. - #2 Coping Skills. - #3 Basic information about quitting. Status of Tobacco Cessation Counseling: #1, #2 AND #3 Completed Cessation Med Status Nicotine Patch Ordered Alcohol Screening - ETOH screen POS if BAL >=80 or Audit-C>= M4/F3 Audit-C Score from Diag Assess: 0 Blood Alcohol Level: Laboratory Tests 08/23 1019 Toxicology Serum Alcohol (<10 MG/DL) < 10.0 Alcohol Use Screening Results: Neg per Audit C &/or BAL - If ETOH counseling indicated - the following topics are required. - #1 Express concern about the patient's - drinking at unhealthy levels, include informing - of national norms for moderate drinking: - men <= 14 drinks/week, max 4 drinks/occasion - women <= 7 drinks/week, max 3 drinks/occasion - #2 Providing feedback, including linking alcohol to - negative physical effects (liver injury, hypertension) - negative emotional effects (relationship problems and - depression) - negative occupational consequences (reduced work - performance) - #3 Advising the patient to abstain from alcohol or - to drink below national norms for moderate drinking - (as listed above). Status of ETOH Use Counseling: N/A B/C NO ETOH Use Metabolic Screening - Screen if on a Neuroleptic Medication - Metabolic screening should include: - Blood Pressure, BMI, Glucose or Hgb A1c, & a - Lipid profile from within the past 365 days. Metabolic Screening ([X]) Not Applicable, patient not on a neuroleptic. OR () Patient on a neuroleptic(s) . Enter below results for Glucose or Hemoglobin A1C, and lipid panel if obtained during the last 365 days. BMI: 24.900 Blood Pressure: 109/62 Laboratory Results (If applicable): n/a Exam and Plan Mental Status Examination Ambulation Status: abulates freely Appearance: 25 y/o, Syrian male who appears stated age. Dressed in hospital issued blue paper scrubs. Well-nourished. Fairly groomed. Attitude towards examiner: cooperative, calm Psychomotor activity: no retardation or agitation Behavior: within fair behavioral control Quality of speech: Cambodian speaking. Accented. Normal in rate, tone and volume. Affect: constricted Mood: "very down" Suicidal Ideation: denied Homicidal Ideation: denied Hallucinations: Denied AVH. Reports last endorsing AH prior to ED arrival. Denied VH. Paranoid/Delusional Material: denied. none evident Difficulties with thought organization: none evident Insight: fair Judgment: limited Orientation: x 3 Cognition: grossly intact Memory Function: grossly intact Estimate of intellectual functioning: average Assets/Strengths Patient Identified Assets/Strengths: --motivated for tx and sobriety Impression/Plan Impression and Plan: Pt is a 25 y/o male who represented to ED 3 months after discharging from [facility] d/t similar circumstances including crack/cocaine intoxication, CAH and SI with plan to jump off a bridge in the setting of limited supports, likely homelessness, treatment nonadherence and polysubstance abuse. Patient no longer suicidal or endorsing auditory hallucinations. No evidence of psychotic symptoms at present; AH likely related to crack/cocaine intoxication. Continues to present with depressed mood and anxiety. Agreeable to continuing recently started Zoloft 50mg QAM to target symptoms. Reviewed the risk/benefit/se profiles of medication. Patient verbalized understanding & agreeable trial. - Include all active medical diagnosis that require tx DSM 5 Diagnosis(es): Unspecified Depressive Disorder Substance-induced psychosis Cocaine use disorder, severe Alcohol use disorder, severe Nicotine use disorder - Initial Tx Plan for Active Psych & Medical Conditions Treatment Plan: 1. Monitor on unit for safety, mood and recurrence of AH. 2. Obtain collateral from family/friends. 3. Explore housing options if uncle is unwilling assist with housing. 4. Once symptoms are clinically stable, refer to dual outpatient Cambodian psychiatric services -- likely [facility] in [place], [place]. 5. Continue Zoloft 50mg QAM given primarily depressive symptoms. Monitor for recurrence of AH, none experienced since prior to arrival to ED. 6. H&P per guest experience specialist team. - Factors that would help patient function - in a less restrictive setting. Factors: --continued cessation of SI --continued cessation of AH --stable housing --stable employment --establish community tx supports --sobriety
--- NOTE | 2016-08-24 11:07 | SOCIAL WORKER PROG NOTE PSYCH ---
Social Work Progress Note Progress Note Jana Paris APRN and I met Tyler this morning, utilizing the [employer] system. Tyler shared that he wasn't feeling well, he was having thoughts to harm himself. Thoughts to specifically jump off a bridge. He has had these thoughts before, but has never acted on them. He stated that he had been hearing a voice to jump off the bridge, but this hallucination may also be connected to the crack cocaine use. He stated when he heard the voice he had used. He denies any current hallucinations. He denies any current SI. He has been using crack 1-2 times per week. It seems that he uses in relation to when he can get work. He reports working only 1-2 times per week. When asked what he is doing for work? He stated "whatever is available." He did not follow up at [facility] in [place] when he left here in April, reporting that transportation was difficult. He had been staying with an Uncle, but he reports that the Uncle left and is no longer at the apartment and he can't afford it by himself. He is open to me calling his Uncle Ayaz Washington in [place] and having him in for a family meeting. He reports that he wants help staying off drugs. I told him that we will need to determine his living situation and then figure out follow up treatment. We asked if he had been connected to the human service specialist that picked him up the last time he was here? He said he hadn't talked to him. Called and left a message for Mr. Washington.
[2016-08-24 12:45] VITALS: BP 117/71
--- NOTE | 2016-08-24 15:26 | History & Physical ---
General Information and HPI Source of Information: patient, old records Exam Limitations: language barrier History of Present Illness: 26M PMH polysubstance abuse admitted to [facility] after taking multiple drugs ( crack, heroin, cannabis) and expressing self-harming thoughts and depression. Patient is primarily Bulgarian speaking but speaks some Chinese. Interview conducted in Chinese and Bulgarian. Patient reports feeling depressed but overall well. He reports cough with green sputum since last night. He denies fever, chills, dizziness, lightheadedness, chest pain, abdominal pain. He is unwilling to provide further history and refuses physical exam. 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 EENTM: Reports: no symptoms. Cardiovascular: Reports: no symptoms. Respiratory: Reports: see HPI. GI: Reports: no symptoms. Genitourinary: Reports: no symptoms. Musculoskeletal: Reports: no symptoms. Skin: Reports: no symptoms. Neurological/Psychological: Reports: see HPI. Hematologic/Endocrine: Reports: no symptoms. Immunologic/Allergic: Reports: no symptoms. All Other Systems: Reviewed and Negative Exam & Diagnostic Data Last 24 Hrs of Vital Signs/I&O Vital Signs Date Time Temp Pulse Resp B/P B/P Pulse O2 O2 Flow FiO2 Mean Ox Delivery Rate 08/24 1245 67 117/71 08/24 0811 96.8 88 109/62 08/23 2112 96.9 64 16 131/69 08/23 1734 97.2 81 16 119/76 98 Room Air Intake & Output 08/24 1600 08/24 0800 05 0000 Intake Total Output Total Balance Patient 68.039 kg Weight Physical Exam General Appearance Alert, No Acute Distress, Patient refuses further exam Assessment/Plan Assessment: 26M admitted to [facility] with polysubstance abuse and depression. No signs or symptoms of withdrawal at this time. Reports cough with green sputum but no evidence of pneumonia, likely residual symptoms from having smoking crack. Plan - Management by psychiatry - No antibiotics at this time unless fever spike - Ambulatory for DVT PPx As Ranked By This Provider Problem List: 1. Crack cocaine use 2. Alcohol abuse 3. Suicidal ideation Miscellaneous Miscellaneous Documentation Attending Case Discussed With: MARY WEISS MD Primary Care Physician: PATIENT HAS NO PRIMARY CARE DR Patient sees these Specialists None Level of Patient Care: [facility]
--- NOTE | 2016-08-24 15:51 | SOCIAL WORKER TX PLAN PSYCH ---
Treatment Plan - Please Document: - Evidence that there is ongoing collaboration between - the patient and the interdisciplinary team, - including the patient's active participation and - responsibility for engaging in the treatment regimen, - and that the treatment plan is individualized and - relevant to the patient's conditions. - Treatment plan should reflect documentation indicating - that all active therapeutic efforts are included. Strengths/Capabilities: pt reports the last hospitalization was helpful so he came back for more help Physical Limitations (Interventions): none DSM5/PS Stressors/Medical Prob Diagnosis' (DSM 5, Stressors, Medical): Unspecified Depression F32.9 Cocaine Use disorder, severe F14.20 Alcohol Use disorder, moderate F 10.20 Cannabis use disorder,moderate F12.20 Current GAF: 28 Treatment Team - Responsibilities of members of the treatment team include: - Medication Management- MD or CONTROLS DESIGNER - Medication Administration and Monitoring- Nurse - Group Therapy- Occupational Therapist - 1:1 Therapy,Disch Planning,family involvement-Quality Associate
[2016-08-24 16:28] VITALS: BP 131/72
[2016-08-24 20:18] VITALS: BP 126/73
[2016-08-25 08:04] VITALS: BP 109/59
[2016-08-25 11:56] VITALS: BP 110/59
--- NOTE | 2016-08-25 14:46 | CP SOUTH PROGRESS NOTE PSYCH ---
Psych (Inpt) Progress Note Progress Note Include the following elements, when applicable: Involvement in the active treatment of the patient with behavioral observations of the patient and the patient's response to the treatment. Review of the ongoing treatment process in the context of the treatment plan. Indication of how multi-disciplinary staff members are carrying out the treatment plan. Plans for future interventions and recommendations for revision of the treatment plan. Liaison with other physicians/providers. Progress Note: I discussed this patient's progress to date, current mental status, treatment process in the context of the treatment plan, and discharge planning with staff/ team in the daily morning inpatient team meeting. I also met with the patient myself in individual session. Current Medications Sig/Gerry Start time Last Medication Dose Route Stop Time Status Admin Acetaminophen 650 MG Q4P PRN 08/23 1914 AC PO Al Hydroxide/Mg 30 ML Q4-6 PRN PRN 08/23 1914 AC Hydroxide PO Albuterol Sulfate 2 PUF Q4P PRN 08/23 1914 AC INH Haloperidol 2 MG Q4 HRS NEEDED PRN 08/23 1914 AC PO Lorazepam 1 MG Q4 HRS NEEDED PRN 08/23 1914 AC PO Magnesium Hydroxide 30 ML AT BEDTIME PRN 08/23 1914 AC PO Nicotine 7 MG DAILY 08/25 1000 AC 08/25 TOP 0851 Nicotine 2 MG Q2 HRS NEEDED PRN 08/24 1415 AC PO Sertraline HCl 50 MG DAILY 08/24 1000 AC 08/25 PO 0851 Trazodone HCl 50 MG AT BEDTIME PRN 08/23 191 AC PO Vital Signs Date Time Temp Pulse Resp B/P B/P Pulse O2 O2 Flow FiO2 Mean Ox Delivery Rate 08/25 1156 58 110/59 08/25 0804 96.5 73 109/59 08/24 2017 97.7 71 126/73 08/24 1628 73 131/72 A: Chart, progress notes, labs, vital signs and medication list were reviewed. Vital signs within normal limits. No new labs results today. Met with patient this afternoon together with Maria Elena Bennett LCSW and [employer] compressor mechanic bus service, ID#[id number]. Patient appeared somewhat guarded on encounter. No psychomotor retardation or agitation noted. Eye contact appropriate. Speech accented, normal in rate and tone. He expressed an increase in depression and feeling "very desperate." Stated that he feels scared and disappointed d/t not being able to recall his actions while intoxicated prior to ED arrival. Stated he might have stolen from or wronged his friends while under the influence of crack. Denied active SI, plans and intent. Reported feeling hopeless, helpless , worthless and guilty. Reported passive SI and gave a safety promise while on unit. Denied recurrence of AH. Denied VH and paranoid ideation. No evidence of delusions. Described sleep as "ok." Stated appetite and energy level are "good. " Reported tolerating Zoloft well, denied SEs except for minor NIELSEN. Informed of prn Tylenol order. Patient aware he needs to ask nursing staff in order to receive prn. He verbalized understanding. Patient making slow progress with continued depressive symptoms and resolution of AH in the setting of sobriety. Continues to require inpatient hospitalization for stabilization and safety as patient has limited social and community supports and remains in an emotionally vulnerable state. P: 1. Cont. current meds. 2. Cont. monitoring on unit for safety, mood, SI. 3. Obtain collateral from Uncle/Aunt - 2 phone calls made by Maria Elena Bennett LCSW, awaiting return phone calls. 4. Explore alternative housing options, possibly residential substance rehab. 5. Cont. dispo planning.
[2016-08-25 16:06] VITALS: BP 123/67
--- NOTE | 2016-08-25 17:36 | SOCIAL WORKER PROG NOTE PSYCH ---
Social Work Progress Note Progress Note Talked to Tyler today utilizing the [employer] interrpreting system. Jana Paris APRN was also present. Tyler shared that he is feeling depressed and desperate today. He denies any trouble with voices. Intially I asked if he had any suicidal thoughts? He said no. Later in the conversation he reported that he is upset over issues with friends, not working, and the issue using crack. He reported that the only way out he could see was to kill himself. Tried to explore what the issue was with friends. It was difficult to understand, but it sounds like he is concerned because he may have stole some items from a friend. He denies stealing money, but stated it was a car eugene and some other items. He seemed worried that the friend would be upset or find out. I believe these incidents are in relation to him using crack. At one point he stated that he was feeling like he could be harmed by someone outside of the hospital, but denied that it was drug related. I told him that I left a message with his uncle Ayaz, but he hadn't called back. I asked if we could call again during the meeting today? He said yes. We called and got his Uncle's . She reported that he was working and would not be home until 6:30pm. I asked if there was any way we could talk to him earlier? She said that he didn't have a cell. I asked if she could pass along a message that I was looking to speak with him prior to 4pm. She said that she would pass it along. Tyler stated he didn't think he would be able to live with his Uncle, because he hadn't talked with him. He said he would try to make some other calls to see if there are any other possibilities.
[2016-08-25 19:37] VITALS: BP 142/75
[2016-08-26 08:10] VITALS: BP 102/68
[2016-08-26 12:07] VITALS: BP 130/70
--- NOTE | 2016-08-26 15:05 | CP SOUTH PROGRESS NOTE PSYCH ---
Psych (Inpt) Progress Note Progress Note Include the following elements, when applicable: Involvement in the active treatment of the patient with behavioral observations of the patient and the patient's response to the treatment. Review of the ongoing treatment process in the context of the treatment plan. Indication of how multi-disciplinary staff members are carrying out the treatment plan. Plans for future interventions and recommendations for revision of the treatment plan. Liaison with other physicians/providers. Progress Note: Medication list reviewed. Case and treatment plan discussed in team meeting. Staff reports that the patient is isolative. Has reported feeling depressed and desperate. Uncle left apartment and patient can't afford apartment. Now homeless. Patient seen with SW in conference room at 1:54 pm with assistance of [facility] healthcare interpreter Ermelinda, #[id number]. The patient is dressed in blue scrubs. He has a light neal. States he has been here for like 4 days. Reports he came in because he was not feeling well with his mental health. Reports he just felt like harming himself, jumping off a bridge. He identifies stressors as being here for 5 months and not being able to work. Reports he is having trouble with his living situation. Reports he has been addicted to crack and beer. Affect is blunted and anxious. Describes mood as heavy, stating he does not know what to do. Reports has head just hurts. Rates sad mood 7/10 and anxiety 10/10. Feels hopeless, helpless and worthless. Feels guilty for things he has done with some friends, having offended them, and for giving a lot of headaches to his family. Denies suicidal and homicidal ideation. Denies hearing voices. Last heard voices on Tuesday, he thinks. Denies visual hallucinations now. Last had visual hallucinations on Tuesday or Tuesday. When asked if anyone is out to harm him, he thought perhaps his friends from whom he has taken things. Denies magical burciaga. Patient is oriented to person and place. Date: , unspecified date in July 2016. Reports sleep is normal. Appetite is normal. Energy is 60%. Tolerating medications well, without complaint. I advised the patient to quit use of drugs and alcohol. States he does not know where to go to live. He wants to go back to [facility] and perhaps live with his mother. States he has not had contact with his family for 3 months and does not know how to reach them. IMPRESSION: Slow progress. Continue present treatment plan. AH, VH and SI seem to have resolved. Placement will be problematic, given that the patient is an undocumented alien.
[2016-08-26 15:35] VITALS: BP 131/67
--- NOTE | 2016-08-26 15:55 | SOCIAL WORKER PROG NOTE PSYCH ---
Social Work Progress Note Progress Note Dr. Engle and I met with Tyler together utilizing the [employer] system. Tyler remains confused about his life stating "I don't know what to do, my head hurts." He rates sadness at a 7 (1-10, 10 being worst), anxiety at a 10. He denies any current SI/HI. No reports of auditory or visual hallucinations. He is feeling helpless, hopeless, worthless and guilty. He continues to have fear that his friends may be out to hurt him, because of things he has done. I asked him if he was able to talk to anyone yesterday after we met? He said he tried calling people, including family and he was not able to get a hold of anyone. At this point he feels that returning to [facility] would be the best thing. I asked where he would go? He said, probably to him Mom's house. I asked if he had a way to contact family there? He said no. He hasn't talked to anyone in months. He did not seem aware of how to get a hold of anyone. At that point Dr. Engle and I stated we would need to discuss things further as a team. I told him we will talk more tomorrow.
[2016-08-26 19:58] VITALS: BP 133/83
[2016-08-27 07:43] VITALS: BP 131/60
[2016-08-27 12:20] VITALS: BP 107/61
--- NOTE | 2016-08-27 15:13 | CP SOUTH PROGRESS NOTE PSYCH ---
Psych (Inpt) Progress Note Progress Note Include the following elements, when applicable: Involvement in the active treatment of the patient with behavioral observations of the patient and the patient's response to the treatment. Review of the ongoing treatment process in the context of the treatment plan. Indication of how multi-disciplinary staff members are carrying out the treatment plan. Plans for future interventions and recommendations for revision of the treatment plan. Liaison with other physicians/providers. Progress Note: I discussed this patient's progress to date, current mental status, treatment process in the context of the treatment plan, and discharge planning with staff/ team in the daily morning inpatient team meeting. I also met with the patient myself in individual session. Vital Signs Date Time Temp Pulse Resp B/P B/P Pulse O2 O2 Flow FiO2 Mean Ox Delivery Rate 08/27 1220 75 107/61 08/27 0743 95.6 81 131/60 08/26 1958 97.7 89 133/83 08/26 1535 79 131/67 Current Medications Sig/Gerry Start time Last Medication Dose Route Stop Time Status Admin Acetaminophen 650 MG Q4P PRN 08/23 1914 AC PO Al Hydroxide/Mg 30 ML Q4-6 PRN PRN 08/23 1914 AC Hydroxide PO Albuterol Sulfate 2 PUF Q4P PRN 08/23 1914 AC INH Gabapentin 300 MG Q4 HRS NEEDED PRN 08/27 1530 UNVr PO Haloperidol 2 MG Q4 HRS NEEDED PRN 08/23 1914 DC 08/25 PO 1735 Lorazepam 1 MG Q4 HRS NEEDED PRN 08/23 1914 DC PO Magnesium Hydroxide 30 ML AT BEDTIME PRN 08/23 1914 AC PO Mirtazapine 7.5 MG AT BEDTIME 08/27 2200 UNVr PO Nicotine 7 MG DAILY 08/25 1000 AC 08/27 TOP 0819 Nicotine 2 MG Q2 HRS NEEDED PRN 08/24 1415 AC PO Sertraline HCl 50 MG DAILY 08/24 1000 AC 08/27 PO 0819 Trazodone HCl 50 MG AT BEDTIME PRN 08/23 1914 DC 08/26 PO 2119 A: Chart, progress notes, labs, vital signs and medication list were reviewed. Vital signs within normal limits. No new labs results today. Met with patient today together with Maria Elena Bennett LCSW and Rupesh Jarvis, ID#[id number]. Patient continued to express wanting to return to [facility]. Stated that he has continued trying to reach out to friends, family and former co-workers while here but nobody has returned his phone calls. Stated he feels he has no supports here in the [facility], and thus wants to go back to [facility]. We reviewed some options with the patient which were recommended by labor and employment paralegal, lCaribel Ford. [facility] seemed [facility]able [facility] assistance returning to [facility]. Informed patient that tx team would look further into this option, as patient expressed concern about what would happen if they could not help him. Today, patient described his mood as "good, happy." Expressed feeling hopeful to return to [facility]. Affect appeared brighter. Eye contact appropriate. Speech normal in rate, volume and tone. Denied active and passive SI. Denied HI, AH, VH and PI. No evidence of bizarre thoughts or delusions. Stated sleeping poorly last night, denied NMAs or racing thoughts. Also, reported poor reaction to Trazodone and requested it be discontinued. Patient agreeable to retrial Remeron for insomnia which he had been on and tolerated well in the past. Thought process was linear. Cognition grossly intact. Reported tolerating Zoloft well, denied untoward effects. P: 1. Cont. monitoring on unit for safety, mood and SI. 2. D/C Trazodone. Start Remeron 7.5mg QHS for insomnia. 3. Cont. Zoloft 50mg daily for anxiety/depression. 4. Explore dispo to [facility] for assistance back to [facility].
--- NOTE | 2016-08-27 15:29 | SOCIAL WORKER PROG NOTE PSYCH ---
Social Work Progress Note Progress Note Spoke with Claribel Ford (Hospital Debone Supervisor) about Tyler's situation. Claribel looked into some information about obtaining an ID in [place] and info about the [facility] in [place]. Jana Paris APRN and I spoke with Tyler utilizing the [employer] system. Tyler continues to express that he wants to return to [facility]. He tried calling people, including his family, but states they want nothing to do with him and won't talk to him. He feels too much pressure in the [place] and just wants to return to [facility]. He was happy to hear that we had some thoughts about helping him. He does have a passport with him here at the hospital. I talked with him about possibly going to the [facility] in [facility]. He was open to the idea, but was worried about the process. He wondered if they wouldn't help him. I told him I could try to find out some additional information. Tyler is a little stressed and bored here, but other than that symptoms are stable. Denies any SI/ HI, denies AH/VH. He asked about help with getting some additional clothes. I told him I would check with nursing to see if anything is available. Called the [facility]. I spoke with someone named Jag who was trying to direct my call to the proper dept., but they could not answer my call at this time. I had to leave my name and number to receive a call back.
[2016-08-27 15:37] VITALS: BP 134/68
[2016-08-27 19:54] VITALS: BP 126/66
[2016-08-28 08:50] VITALS: BP 99/58
[2016-08-28 12:21] VITALS: BP 121/63
--- NOTE | 2016-08-28 13:22 | CP SOUTH PROGRESS NOTE PSYCH ---
Psych (Inpt) Progress Note Progress Note Include the following elements, when applicable: Involvement in the active treatment of the patient with behavioral observations of the patient and the patient's response to the treatment. Review of the ongoing treatment process in the context of the treatment plan. Indication of how multi-disciplinary staff members are carrying out the treatment plan. Plans for future interventions and recommendations for revision of the treatment plan. Liaison with other physicians/providers. Progress Note: Pt notes that he is no longer depressed. He denies SI or HI. He has made the decision to return to [facility] as he has friends and family there and "[place] is no good." He has not been happy here. He denies AVHs. Current Medications Sig/Gerry Start time Last Medication Dose Route Stop Time Status Admin Acetaminophen 650 MG Q4P PRN 08/23 1914 AC 08/27 PO 1712 Al Hydroxide/Mg 30 ML .STK-MED ONE 08/27 1723 DC Hydroxide PO 08/27 1724 Al Hydroxide/Mg 30 ML Q4-6 PRN PRN 08/23 1914 AC 08/27 Hydroxide PO 1729 Albuterol Sulfate 2 PUF Q4P PRN 08/23 1914 AC INH Gabapentin 300 MG Q4 HRS NEEDED PRN 08/27 1530 AC 08/27 PO 2136 Haloperidol 2 MG Q4 HRS NEEDED PRN 08/23 1914 DC 08/25 PO 1735 Lorazepam 1 MG Q4 HRS NEEDED PRN 08/23 1914 DC PO Magnesium Hydroxide 30 ML AT BEDTIME PRN 08/23 1914 AC PO Mirtazapine 7.5 MG AT BEDTIME 08/27 2200 AC 08/27 PO 2136 Nicotine 7 MG DAILY 08/25 1000 AC 08/28 TOP 0841 Nicotine 2 MG Q2 HRS NEEDED PRN 08/24 1415 AC PO Sertraline HCl 50 MG DAILY 08/24 1000 AC 08/28 PO 0841 Trazodone HCl 50 MG AT BEDTIME PRN 08/23 1914 DC 08/26 PO 2119 Vital Signs Date Time Temp Pulse Resp B/P B/P Pulse O2 O2 Flow FiO2 Mean Ox Delivery Rate 08/28 1221 74 121/63 08/28 0850 97.1 79 99/58 08/27 1954 97.0 70 126/66 / 1537 71 134/68 MSE Appears as stated age. Cooperative behavior, good, appropriate eye contact. Nl speech rate and prosody. No psychomotor retardation or agitation. Mood good Affect euthymic, full range, appropriate, non-liable. Linear and goal directed thought process. Denies SI or HI. Does not appear to be responding to internal stimuli. Denies AVHs, paranoia, or delusions. I/J: limited A/P: Pt with MDD and PSD now with improved mood. Future orientated to returing home. - Continue current medication regimen
[2016-08-28 16:16] VITALS: BP 116/77
[2016-08-28 19:44] VITALS: BP 120/75
[2016-08-29 08:37] VITALS: BP 92/53
--- NOTE | 2016-08-29 10:57 | CP SOUTH PROGRESS NOTE PSYCH ---
See Addendum Psych (Inpt) Progress Note Progress Note Include the following elements, when applicable: Involvement in the active treatment of the patient with behavioral observations of the patient and the patient's response to the treatment. Review of the ongoing treatment process in the context of the treatment plan. Indication of how multi-disciplinary staff members are carrying out the treatment plan. Plans for future interventions and recommendations for revision of the treatment plan. Liaison with other physicians/providers. Progress Note: Pt notes that no longer depressed. Denies SI or HI. Again restated desire to return to [facility] as does not like [place]. He wants to be near family again. Current Medications Sig/Gerry Start time Last Medication Dose Route Stop Time Status Admin Acetaminophen 650 MG Q4P PRN 08/23 1914 AC 08/27 PO 1712 Al Hydroxide/Mg 30 ML Q4-6 PRN PRN 08/23 1914 AC 08/27 Hydroxide PO 1729 Albuterol Sulfate 2 PUF Q4P PRN 08/23 191 AC INH Gabapentin 300 MG Q4 HRS NEEDED PRN 08/27 1530 AC 08/27 PO 2136 Magnesium Hydroxide 30 ML AT BEDTIME PRN 08/23 191 AC PO Mirtazapine 7.5 MG AT BEDTIME 08/27 2200 DC 08/27 PO 2136 Nicotine 7 MG DAILY 08/25 1000 AC 08/29 TOP 1013 Nicotine 2 MG Q2 HRS NEEDED PRN 08/24 1415 AC PO Sertraline HCl 50 MG DAILY 08/24 1000 AC 08/29 PO 1013 Vital Signs Date Time Temp Pulse Resp B/P B/P Pulse O2 O2 Flow FiO2 Mean Ox Delivery Rate 08/29 0837 96.4 75 92/53 08/28 1944 98.4 75 120/75 08/28 1616 69 116/77 08/28 1221 74 121/63 MSE Appears as stated age. Cooperative behavior, good, appropriate eye contact. Nl speech rate and prosody. No psychomotor retardation or agitation. Mood stephanie Affect euthymic, full range, appropriate, non-liable. Linear and goal directed thought process. Denies SI or HI. Does not appear to be responding to internal stimuli. Denies AVHs, paranoia, or delusions. I/J: limited A/P: Pt with MDD and PSD now with improved mood. Future orientated to returing home. - Pt no longer wants to be on mirtazapine as no longer feels that he is depressed. - Otherwise continue current medication regimen
[2016-08-29 12:08] VITALS: BP 116/60
[2016-08-29 16:15] VITALS: BP 128/70
[2016-08-29 19:51] VITALS: BP 124/70
[2016-08-30 08:15] VITALS: BP 98/68
[2016-08-30 12:13] VITALS: BP 123/69
--- NOTE | 2016-08-30 15:43 | CP SOUTH PROGRESS NOTE PSYCH ---
Psych (Inpt) Progress Note Progress Note Include the following elements, when applicable: Involvement in the active treatment of the patient with behavioral observations of the patient and the patient's response to the treatment. Review of the ongoing treatment process in the context of the treatment plan. Indication of how multi-disciplinary staff members are carrying out the treatment plan. Plans for future interventions and recommendations for revision of the treatment plan. Liaison with other physicians/providers. Progress Note: I discussed this patient's progress to date, current mental status, treatment process in the context of the treatment plan, and discharge planning with staff/ team in the daily morning inpatient team meeting. I also met with the patient myself in individual session. Current Medications Sig/Gerry Start time Last Medication Dose Route Stop Time Status Admin Acetaminophen 650 MG Q4P PRN 08/23 1914 AC 08/27 PO 1712 Al Hydroxide/Mg 30 ML Q4-6 PRN PRN 08/23 191 AC 08/27 Hydroxide PO 1729 Albuterol Sulfate 2 PUF Q4P PRN 08/23 1914 AC INH Gabapentin 300 MG Q4 HRS NEEDED PRN 08/27 1530 AC 08/27 PO 2136 Magnesium Hydroxide 30 ML AT BEDTIME PRN 08/23 191 AC PO Nicotine 7 MG DAILY 08/25 1000 AC 08/28 TOP 0841 Nicotine 2 MG Q2 HRS NEEDED PRN 08/24 1415 AC 08/29 PO 1347 Sertraline HCl 50 MG DAILY 08/24 1000 AC 08/30 PO 0849 Vital Signs Date Time Temp Pulse Resp B/P B/P Pulse O2 O2 Flow FiO2 Mean Ox Delivery Rate 08/30 1213 66 123/69 08/30 0815 96.0 70 98/68 08/29 1951 97.8 71 124/70 04 1615 72 128/70 A: Chart, progress notes, labs, VS and medication list were reviewed. VS within normal limits. No new lab results today. Mirtazepine 7.5mg QHS was discontinued per patient request. No significant events from over the weekend. Met with patient this afternoon together with Maria Elena Bennett LCSW. He continued to express a desire to return to [facility]. Reported trying to contact family over the weekend, but had no success speaking to anyone. Feels unsupported by family in the [place]. Hopeful to [place]. Informed patient that tx team is in process of [facility] to [facility]. Patient verbalized understanding and was agreeable to pursusing these options. Patient was oriented x3. Presented in good behavioral control. No evidence of psychomotor agitation or retardation. Described his mood as "very good, a little bored." Denied acute symptoms of depression and anxiety. Denied active and passive suicidal ideation. Denied homicidal ideation, auditory and visual hallucinations. Denied paranoid ideation. Thought process linear, goal directed. Cognition grossly intact. Reported his sleep and appetite are good. Reported tolerating medications well, denied untoward effects. Patient with hx of unspecified depression and polysubstance abuse, showing improved mood.Depressive symptoms were likely in the context of crack/cocaine crash. Awaiting return to [facility]. P: 1. Cont. current medications. 2. Encourage participation in milieu. 3. [facility]. [facility] and [facility] regarding patient's return to [facility].
--- NOTE | 2016-08-30 15:48 | SOCIAL WORKER PROG NOTE PSYCH ---
Social Work Progress Note Progress Note Called the [facility] again today. I was able to speak with someone named Niyah, who shared that the process to get someone back to [facility] can take up to 2 weeks. They have to get approval, request documents, and money for a ticket. I explained his situation and that he is homeless. Asked if they help with placement during this wait? She said they did not, but that she will go to the consul and ask if there is anything that can be done and get back to me. She did not return my call yesterday. Met with Tyler briefly with Jana Paris APRN utilizing the [employer]. Tyler's mood seems to be okay. He didn't offer any complaints at this time. I gave him an update on the above information and told him I will keep him posted. He said he has tried talking to family, but no one will speak with him.
[2016-08-30 15:59] VITALS: BP 131/70
[2016-08-30 19:50] VITALS: BP 123/77
[2016-08-31 08:01] VITALS: BP 113/58
[2016-08-31 11:47] VITALS: BP 122/75
--- NOTE | 2016-08-31 15:30 | CP SOUTH PROGRESS NOTE PSYCH ---
Psych (Inpt) Progress Note Progress Note Include the following elements, when applicable: Involvement in the active treatment of the patient with behavioral observations of the patient and the patient's response to the treatment. Review of the ongoing treatment process in the context of the treatment plan. Indication of how multi-disciplinary staff members are carrying out the treatment plan. Plans for future interventions and recommendations for revision of the treatment plan. Liaison with other physicians/providers. Progress Note: I discussed this patient's progress to date, current mental status, treatment process in the context of the treatment plan, and discharge planning with staff/ team in the daily morning inpatient team meeting. I also met with the patient myself in individual session. Current Medications Sig/Gerry Start time Last Medication Dose Route Stop Time Status Admin Acetaminophen 650 MG Q4P PRN 08/23 191 AC 08/27 PO 1712 Al Hydroxide/Mg 30 ML Q4-6 PRN PRN 08/23 1915 AC 08/27 Hydroxide PO 1729 Albuterol Sulfate 2 PUF Q4P PRN 08/23 191 AC INH Gabapentin 300 MG Q4 HRS NEEDED PRN 08/27 1530 AC 08/27 PO 2136 Magnesium Hydroxide 30 ML AT BEDTIME PRN 08/23 1915 AC PO Nicotine 7 MG DAILY 08/25 1000 AC 08/28 TOP 0841 Nicotine 2 MG Q2 HRS NEEDED PRN 08/24 1415 AC 08/29 PO 1347 Sertraline HCl 50 MG DAILY 09/01 1000 AC PO Sertraline HCl 50 MG ONE TIME ONE 08/31 1530 AC PO 08/31 1531 Sertraline HCl 50 MG DAILY 08/24 1000 DC 08/30 PO 0849 Vital Signs Date Time Temp Pulse Resp B/P B/P Pulse O2 O2 Flow FiO2 Mean Ox Delivery Rate 08/31 1147 70 122/75 08/31 0801 96.4 69 113/58 06/05 1950 98.3 77 123/77 06/05 1559 58 131/70 A: Chart, progress notes, labs, VS and medication list were reviewed. VS within normal limits. No new lab results today. Met with patient today together with Maria Elena Bennett LCSW. Rupesh ferry captain ID: [id number] was used. He presented in a good mood. Affect was full-range, bright, non- labile. Eye contact appropriate. Speech normal in rate, tone and volume. Patient agreed that much of his depression is rooted in substance abuse and situational stress of being in the [place] and without support. Assessed need for continued antidepressant tx. When discussed with patient, he requested to remain on Zoloft. Stated it has helped depressive symptoms and that he would follow up with an MD in [facility] once there. Today, he denied acute symptoms of anxiety and depression. Remains motivated to return to [facility]. Deneid suicidal and homicidal ideation, plans and intent. Denied auditory and visual hallucinations. Thought process was linear, goal-directed. No evidence of paranoia or delusions. Patient agreeable to continue taking Zoloft, denied untoward effects. Patient with hx of unspecified depression and polysubstance abuse, showing improved mood. Depressive symptoms likely in the context of crack/cocaine crash and situational stress. Awaiting return to [facility]. P: 1. Cont. Zoloft 50mg daily. 2. Cont. monitoring on unit for safety, mood and suicidal ideation. 3. Work with to return patient to [facility].
[2016-08-31 15:51] VITALS: BP 116/58
--- NOTE | 2016-08-31 16:30 | SOCIAL WORKER PROG NOTE PSYCH ---
Social Work Progress Note Progress Note Verified Tyler's passport. Looks like it is good until 2020. Talking with administration about the possibility of us helping him out with a plane ticket back to [facility]. This is being looked into. Tyler, Jana Paris APRN and I met together utilizing the [employer] system. Tyler was smiling and seems to be doing well. I gave him the above information. He is definetely still interested in returning to [facility]. That has not changed. Jana Paris APRN talked with him about his thoughts about continuing the Zoloft or discontinuing it. He seems to feel it has been beneficial and would like to remain on it. We explained that he will only get a couple of weeks worth from here at discharge and he will need to find a doctor in [facility] to keep prescribing it. He seemed fine with that. I will need to request free meds from the pharmacy here at discharge.
[2016-08-31 19:47] VITALS: BP 129/69
[2016-09-01 08:09] VITALS: BP 96/57
[2016-09-01 12:03] VITALS: BP 117/63
--- NOTE | 2016-09-01 13:45 | CP SOUTH PROGRESS NOTE PSYCH ---
Psych (Inpt) Progress Note Progress Note Include the following elements, when applicable: Involvement in the active treatment of the patient with behavioral observations of the patient and the patient's response to the treatment. Review of the ongoing treatment process in the context of the treatment plan. Indication of how multi-disciplinary staff members are carrying out the treatment plan. Plans for future interventions and recommendations for revision of the treatment plan. Liaison with other physicians/providers. Progress Note: I discussed this patient's progress to date, current mental status, treatment process in the context of the treatment plan, and discharge planning with staff/ team in the daily morning inpatient team meeting. I also met with the patient myself in individual session. Current Medications Sig/Gerry Start time Last Medication Dose Route Stop Time Status Admin Acetaminophen 650 MG Q4P PRN 08/23 191 AC 08/27 PO 1712 Al Hydroxide/Mg 30 ML Q4-6 PRN PRN 08/23 1915 AC 08/27 Hydroxide PO 1729 Albuterol Sulfate 2 PUF Q4P PRN 08/23 1914 AC INH Gabapentin 300 MG Q4 HRS NEEDED PRN 08/27 1530 AC 08/27 PO 2136 Magnesium Hydroxide 30 ML AT BEDTIME PRN 08/23 1915 AC PO Nicotine 7 MG DAILY 08/25 1000 AC 08/28 TOP 0841 Nicotine 2 MG Q2 HRS NEEDED PRN 08/24 1415 AC 08/29 PO 1347 Sertraline HCl 50 MG DAILY 09/01 1000 AC 09/01 PO 0849 Sertraline HCl 50 MG ONE TIME ONE 08/31 1530 DC 08/31 PO 08/31 1531 1615 Vital Signs Date Time Temp Pulse Resp B/P B/P Pulse O2 O2 Flow FiO2 Mean Ox Delivery Rate 09/01 1203 64 117/63 09/01 0809 96.0 66 96/57 08/31 1947 97.2 68 129/69 08/31 1551 65 116/58 A: Chart, progress notes, labs, vital signs and medication list were reviewed. Vital signs within normal limits. No new lab results today. Patient shared that he spoke to his mother last night and obtained her phone number from a friend. He informed her that he was struggling here in the [facility]. He reported that she invited him to return home given the circumstances. Patient continued to express a desire to return to [facility]. He described his mood as "good." He had no complaints. Denied SI, HI, AVH. Met patient together with Clarice Mason, CPS aoc director combat plans officer, Maria Elena Bennett LCSW, and (court interpreter) KIA Yang. Together we called the patient's 23-year- old brother, Jeb Washington, and his Uncle Carson in [facility]. The patient's brother reported that he would be available to receive the patient at the [facility] airport, whenever that is arranged. Both the patient's brother and patient were in favor of this. Informed the patient that more information will need to be obtained from [facility] about the process of helping him get to the airport. Informed the patient's brother and uncle that we would call them back once a flight time/date is established. They verbalized understanding of information. P: 1. Cont. same medications. 2. Cont. monitoring on unit for safety, mood and SI. 3. Await disposition for patient's return to [facility].
--- NOTE | 2016-09-01 13:47 | SOCIAL WORKER PROG NOTE PSYCH ---
Social Work Progress Note Progress Note Celia (MST from nursing) helped translate today. Tyler reported that he got his Mother's number and that he spoke with her yesterday. He reported that his Mom was fine with him returning to [facility] and that it was probably better if he was struggling here. We called to contact Mom, but she was not available. We were able to speak with his Uncle Bj. His Brother was also present ( Jeb Washington). They reported that there is no issue with picking up Tyler from the airport. We let them know that we would be back in contact after we try and get more information.
[2016-09-01 16:02] VITALS: BP 126/76
[2016-09-01 20:00] VITALS: BP 124/63
[2016-09-02 08:08] VITALS: BP 106/59
--- NOTE | 2016-09-02 09:10 | CP SOUTH PROGRESS NOTE PSYCH ---
Psych (Inpt) Progress Note Progress Note Include the following elements, when applicable: Involvement in the active treatment of the patient with behavioral observations of the patient and the patient's response to the treatment. Review of the ongoing treatment process in the context of the treatment plan. Indication of how multi-disciplinary staff members are carrying out the treatment plan. Plans for future interventions and recommendations for revision of the treatment plan. Liaison with other physicians/providers. Progress Note: I discussed this patient's progress to date, current mental status, treatment process in the context of the treatment plan, and discharge planning with staff/ team in the daily morning inpatient team meeting. I also met with the patient myself in individual session. Current Medications Sig/Gerry Start time Last Medication Dose Route Stop Time Status Admin Acetaminophen 650 MG Q4P PRN 08/23 1914 AC 08/27 PO 1712 Al Hydroxide/Mg 30 ML Q4-6 PRN PRN 08/23 1914 AC 08/27 Hydroxide PO 1729 Albuterol Sulfate 2 PUF Q4P PRN 08/23 1914 AC INH Gabapentin 300 MG Q4 HRS NEEDED PRN 08/27 1530 AC 08/27 PO 2136 Magnesium Hydroxide 30 ML AT BEDTIME PRN 08/23 191 AC PO Nicotine 7 MG DAILY 08/25 1000 AC 08/28 TOP 0841 Nicotine 2 MG Q2 HRS NEEDED PRN 08/24 1415 AC 08/29 PO 1347 Sertraline HCl 50 MG DAILY 09/01 1000 AC / PO 0826 Vital Signs Date Time Temp Pulse Resp B/P B/P Pulse O2 O2 Flow FiO2 Mean Ox Delivery Rate 09/03 807 96.1 65 106/59 09/02 1999 97.9 67 124/63 09/01 1602 83 126/76 06/ 1203 64 117/63 A: Chart, progress notes, labs, vital signs and medication list were reviewed. Vital signs within normal limits. No new lab results today. Met with patient together with Maria Elena Bennett LCSW and Celia (MST from nursing) for assistance with translation. Patient continues to report a strong desire to return to [facility] to be with his family. Together we called the patient's Uncle Carson, who confirmed that his family will pick him up at the airport in [facility] at 9:50PM on 09/04/16. Flight arranged from [place] on 09/04/16 at 6:40PM. Patient is in agreement with the above arrangement. Reports his mood as "good." Affect bright, full-range. Observed more visible in the milieu, interacting with select patients. Reports appetite and sleep are stable. Offers no complaints. Eye contact appropriate. Speech normal in rate, tone, volume. Denies suicidal and homicidal ideation, plans and intent. Denies homicidal ideation, auditory and visual hallucinations. No evidence of paranoia or madie delusions. Thought process linear and goal-directed to return home. Cognition grossly intact. Reports tolerating medications well, denied SEs. Patient adamently wants to remain on Zoloft for depression. Informed patient that he will be provided with a 2 week supply of Zoloft on discharge. Patient was instructed to seek out a doctor in [facility] to continue medication. Patient verbalized understanding of instructions and stated there are clinics he knows of in [facility] where he can go for f/u. P: 1. cont. Zoloft 50mg daily for depression. 2. cont. monitoring on unit for safety and mood. 3. flight scheduled to [facility] on 09/04/16 from [place] at 6:40PM. ETA to [facility] 9:50pm on 09/04/16.
[2016-09-02 12:01] VITALS: BP 115/63
[2016-09-02 12:30] VITALS: BP 115/63
--- NOTE | 2016-09-02 14:58 | SOCIAL WORKER PROG NOTE PSYCH ---
Social Work Progress Note Progress Note [facility] has arranged for a flight on Tuesday out of [place] airport at 6: 40pm, arriving to [facility] approximately 3 hours later. A limo service will be arranged to transport Tyler at 12:30 from the hospital. Celia ([facility], nursing staff) came down to assist in calling Tyler's family again in [facility]. We were able to connect with his uncle again. He confirmed that family will be waiting at the airport for Tyler when he arrives. Family was given all the information. Tyler was told that Jana and I will prepare for his discharge tomorrow for Tuesday. We will get Zoloft filled for him here at the pharmacy and he will need to seek out a doctor in [facility] to continue medication. Tyler appears happy about all of the arrangements.
[2016-09-02 16:10] VITALS: BP 119/68
[2016-09-02 20:11] VITALS: BP 105/65
[2016-09-03 08:09] VITALS: BP 118/66
[2016-09-03] MEDS ORDERED: SERTRALINE HCL50 MG PO (13:16)
[2016-09-03] MEDS ORDERED: NICOTINE PATCH1 EAC1 TOP (13:16)
--- NOTE | 2016-09-03 15:24 | CP SOUTH PROGRESS NOTE PSYCH ---
Psych (Inpt) Progress Note Progress Note Include the following elements, when applicable: Involvement in the active treatment of the patient with behavioral observations of the patient and the patient's response to the treatment. Review of the ongoing treatment process in the context of the treatment plan. Indication of how multi-disciplinary staff members are carrying out the treatment plan. Plans for future interventions and recommendations for revision of the treatment plan. Liaison with other physicians/providers. Progress Note: I discussed this patient's progress to date, current mental status, treatment process in the context of the treatment plan, and discharge planning with staff/ team in the daily morning inpatient team meeting. I also met with the patient myself in individual session. Current Medications Sig/Gerry Start time Last Medication Dose Route Stop Time Status Admin Acetaminophen 650 MG Q4P PRN 08/23 1914 AC 08/27 PO 1712 Al Hydroxide/Mg 30 ML Q4-6 PRN PRN 08/23 1914 AC 08/27 Hydroxide PO 1729 Albuterol Sulfate 2 PUF Q4P PRN 08/23 1914 AC INH Gabapentin 300 MG Q4 HRS NEEDED PRN 08/27 1530 AC 09/02 PO 1948 Magnesium Hydroxide 30 ML AT BEDTIME PRN 08/23 191 AC PO Nicotine 7 MG DAILY 08/25 1000 AC 08/28 TOP 0841 Nicotine 2 MG Q2 HRS NEEDED PRN 08/24 1415 AC 08/29 PO 1347 Sertraline HCl 50 MG DAILY 09/01 1000 AC 09/03 PO 0822 Vital Signs Date Time Temp Pulse Resp B/P B/P Pulse O2 O2 Flow FiO2 Mean Ox Delivery Rate 09/03 808 96.1 65 118/66 09/02 2010 97.7 65 105/65 09/02 1610 69 119/68 A: Chart, progress notes, labs, vital signs and medication list were reviewed. Vital signs within normal limits. No new lab results today. Met with patient this afternoon together with Maria Elena Bennett LCSW and Rupesh carusoerRajan, ID# [id number]. Patient described his mood as "good." Stated feeling a "little excited" about seeing his family. Stated he hasn't seen them in 3 years. Presented future oriented to seek work once in [facility] and abstain from all substances. Verbalized understanding that substance abuse will interfere with his ability to establish work and an income. Denied feeling hopeless, helpless, worthless and guilty. Denied acute symptoms of anxiety and depression. Denied passive and active suicidal ideation, plans and intent. Denied homicidal ideation. Stated and also believed he will not harm himself or others. Denied auditory and visual hallucinations. No evidence of paranoia or madie delusions. Affect full-range. Eye contact appropriate. Speech normal in rate, tone, volume. Had no complaints. Reported sleeping and eating well. Thought process linear, goal directed. Thought content appropriate. Cognition grossly intact. Patient reported tolerating medication well, denied untoward effects. Reviewed discharge instructions and W10 with patient. Patient verbalized understanding to follow up with medical provider upon return to [facility]. Verbalized understanding to abstain from all substances. Verbalized understanding of all flight and limo information. P: 1. Discharge tomorrow to [facility] and flight to [facility]. 2. All discharge prescriptions sent to and filled at retail pharmacy - in possession of nursing staff who will provide to patient on discharge.
--- NOTE | 2016-09-03 16:13 | SOCIAL WORKER PROG NOTE PSYCH ---
Social Work Progress Note Progress Note Jana Paris APRN and I met with Tyler utilizing the [employer] translation system. I reviewed the discharge plan with Tyler. [place] [employer] service will pick him up at 12:30p tomorrow and take him to his flight at [facility]. Jana Paris APRN emphasized the need for him to follow up with a doctor once he gets there. Asked how he was feeling? He said "good." He isn't nervous or anxious about the plan. Encouraged him to stay away from drugs in [facility] and asked what his plan was to do that? He said he was done using drugs and didn't anticipate that as being an issue once home. He plans to stay with his Mother. Wished him well.
[2016-09-03 16:15] VITALS: BP 115/62
[2016-09-03 20:04] VITALS: BP 129/70
[2016-09-04 07:54] VITALS: BP 102/61
[2016-09-04 11:55] VITALS: BP 133/65
--- NOTE | 2016-09-06 08:03 | DISCHARGE SUMMARY REPORT-PSYCH ---
Visit Information Visit Dates/Diagnosis' Admission Date: 08/23/16 Discharge Date: 09/04/16 Reason for Admission: Patient presented to [facility] Emergency department on 08/23/16 s/p cocaine intoxication with subsequent CAH and SI and plan to jump off a bridge. Psy Discharge Primary Diag: Unspecified depressive disorder Psy Discharge Secondary Diag: R/O Substance-induced psychosis; Cocaine use disorder, severe; Alcohol use disorder; Nicotine use disorder. Hospital Course Significant Lab Findings: Lab Urine Cocaine Screen > 1000.0 NG/ML H 08/23/16 1026 Course Complications: None. Consultations: The patient was seen for admission history and physical by Dr. Heri Lamas. Please see his note for additional information. Allergies: Coded Allergies: Penicillins (Intermediate, HIVES 05/25/15) Hospital Course/TX Response: The patient was monitored on the unit for safety, mood, suicidal ideation, and psychosis. He exhibited an absence of psychotic symptoms during his hospital stay, which likely was cocaine induced. He was started on Zoloft 50mg daily for depression/anxiety. He insisted that he remain on this medication, due to it positively improving his mood. He tolerated medication well and denied untoward effects. During the hospital course, the patient's mood and affect improved. He consistently denied suicidal ideation, homicidal ideation, auditory and visual hallucinations, paranoid ideation. There was no evidence of delusions. Maria Elena Bennett LCSW and I attempted on multiple occasions to contact the patient's uncle who lived in [place] for collateral information and to explore if he or other family could possibly take the patient in. The patient's uncle never returned our phone calls. The patient could not identify any other family or friends and stated that he had made attempts to call others who did not want anything to do with him. Patient requested to return home, to [facility]. He stated that he was not interested in engaging in treatment in the [place] or remaining here. He stated that he wanted to return to his family in [facility], find employment and abstain from all substances. The patient, Maria Elena Bennett LCSW, supervisor display fabrication, and I contacted the patient's brother and uncle in [facility] via phone who confirmed that if the patient returned to [facility] that he would be picked up from the airport by family and reside with family post-arrival. The patient was in favor of this discharge plan. Hospital administration was contacted and a flight was arranged for the patient to [facility] on 09/04/16 from [facility] [place] ([employer] [facility]) at 6:40PM and arriving in [facility] at 9:50PM. Discharge HBIPS - Tobacco Use Treatment Offered Post DC Medications Offered: Script Given-See Med List Post DC Tobacco Treatment Plan: Refused Tobacco Tx Pgm - EtOH/Drug Use D/O Treatment Offered Post DC Medications Offered: Ref Med EtOH/Drug Use D/O Post DC EtOH/SubAbuse TX Plan: Refused Post DC Tx Pgm Metabolic Screening - Screen if on a Neuroleptic Medication - Metabolic screening should include: - Blood Pressure, BMI, Glucose or Hgb A1c, & a - Lipid profile from within the past 365 days. Metabolic Screening ([X]) Not Applicable, patient not on a neuroleptic. OR () Patient on a neuroleptic(s) . Enter below results for Glucose or Hemoglobin A1C, and lipid panel if obtained during the last 365 days. BMI: 24.900 Blood Pressure: 133/65 Laboratory Results (If applicable): n/a Discharge Instructions General Discharge Information Discharge Medications: Discharge Medications- (Dose, route, freq, indication): START taking these NEW Home Medications: Nicotine (Nicotine Dose: On the skin, DAILY for Qty: 14 Printed Patch) 7 MG/24 HOUR 7 Milligram nicotine cessation Refills: 0 PATCH.[id number] Apply 1 patch topically to upper arm QAM and remove before HS. Last Taken:08/28/16 Time:9am Sertraline HCl Dose: ORAL, DAILY for Qty: 14 Printed (Sertraline HCl) 50 50 Milligram depression/anxiety Refills: 0 MG TABLET Take 1 tab po QAM. Last Taken:09/04/16 Time:9am *An indigent medication form was completed for the above medications and submitted to the below pharmacy. Above medications were filled for patient prior to discharge. Your Preferred Pharmacy [facility] [address] [place] [address] [id number] Multiple Neuroleptics: ([X]) Not Applicable OR Document below three failed attempts at monotherapy, or a plan to taper to monotherapy, or augmentation of Clozapine. () Patient's Diet: Regular. Patient's Activity: No restrictions. DC Disposition: Patient to return to [facility] to family. Family to pick him up at Airport on 01/11 at 9:50PM in [facility]. Recommendations: Patient was advised to please take his medications as prescribed. He was advised to seek out a physician/psychiatrist in [facility] to continue medication. Patient verbalized understanding of all instructions. Referred To: [facility] [employer] [facility] 1207 leaving [place] @ 6:40pm arriving in [facility] at 9:50pm Copies To: *
== END 2016-09-04 12:38 | DRG 881 ==
LOC: ERH 09:06 → CP SOUTH 19:11 → ERHI 19:11 → ENTRNSPT 20:35 → EDTRNSPT 20:49 → EDTRNSPTTYP 20:49 → CP SOUTH 20:59 → CMPTRNSPT 21:00 → CP SOUTH 08-24 07:55
PROVIDERS: Emergency Medicine; ADMIT Psychiatry & Neurology Psychiatry
DX: F32.9 Major depressive disorder, single episode, unspecified (principal); F10.20 Alcohol dependence, uncomplicated
CPT/HCPCS: 80307; G0480; J3101; J3490